=== PATIENT | male | born 1965 | race Caucasian/White ===

== ENCOUNTER 2024-09-02 03:45 | Inpatient (IN) ==
[2024-09-02] MEDS: SODIUM CHLORIDE 0.9% 1,000 ML IV SCH (04:34)
[2024-09-02 04:43] LABS: Basophils # (auto) 0.07 K/uL (0.00-0.20); Basophils % (auto) 0.4 %; Eosinophils # (auto) 0.03 K/uL (0.00-0.50); Eosinophils % (auto) 0.2 %; Hematocrit (blood only) 38.3 % (42.0-52.0); Hemoglobin 12.9 g/dl (14.0-18.0); Immature Granulocytes # (auto) 0.13 K/uL (0.01-0.20); Immature Granulocytes % (auto) 0.7 %; Lymphocytes # (auto) 2.01 K/uL (1.20-3.40); Lymphocytes % (auto) 10.1 %; Mean Corpuscular Hemoglobin 27.7 pg (25.0-34.0); Mean Corpuscular Hgb Conc 33.7 g/dL (32.0-36.0); Mean Corpuscular Volume 82.4 fL (80.0-100.0); Mean Platelet Volume 10.5 fL (9.4-12.4); Monocytes # (auto) 1.89 K/uL (0.11-0.59); Monocytes % (auto) 9.5 %; Neutrophils # (auto) 15.77 K/uL (1.40-6.50); Neutrophils % (auto) 79.1 %; Platelet Count 229 K/uL (130-400); RDW Coefficient of Variation 14.6 % (11.5-14.5); RDW Standard Deviation 44.2 fL (36.4-46.3); Red Blood Count 4.65 M/uL (4.70-6.10)
[2024-09-02 04:47] LABS: Alanine Aminotransferase 13 U/L (7-52); Albumin Level 3.2 gm/dl (3.4-5.0); Alkaline Phosphatase 100 U/L (34-104); Anion Gap 11 (3-11); Aspartate Aminotransferase 21 U/L (13-39); BUN Creatinine Ratio 19.7 (10-20); Bilirubin Direct 0.2 mg/dl (0-0.2); Bilirubin,Total 0.7 mg/dl (0.2-1.0); Blood Urea Nitrogen 44 mg/dl (6-23); Calcium 8.8 mg/dl (8.6-10.3); Carbon Dioxide 15 mmol/L (21-32); Chloride 103 mmol/L (98-107); Glucose 212 mg/dl (70-99(Fasting)); Magnesium 1.3 mg/dl (1.7-2.4); Potassium 4.7 mmol/L (3.5-5.1); Sodium 129 mmol/L (136-145); Total Protein 7.1 gm/dl (6.0-8.3)
[2024-09-02 04:53] LABS: Troponin I High Sensitivity 23.7 pg/ml (0-20)
[2024-09-02] MEDS ORDERED: VANCOMYCIN CONSULT ACTIVE PRN (04:54)
[2024-09-02] MEDS: SODIUM CHLORIDE 0.9% 1,000 ML IV ONE ×2 (04:58→06:24)
--- NOTE | 2024-09-02 05:29 | Emergency Department Note ---
Impression & Plan Sepsis, NOE (acute kidney injury), Elevated troponin, Status post below-knee amputation, Norovirus ED Provider Note ED Provider Note NAME: BARBER AGUILERA AGE:59 SEX: Male : 1965 ARRIVES VIA: EMS INFORMANT: Patient ED PROVIDER(s): Sandra Polanco DO CHIEF COMPLAINT: Positive outpatient blood cultures HPI: This is a 59-year-old male sent in by EMS from a local rehab facility after the finding of positive outpatient blood culture. Patient reports he has had intermittent fevers over the last 2 days and has generally had increasing weakness over the last 2 weeks after initially feeling as though he was recovering and rehabbing well following a right below the knee amputation in mid June. Patient states he had blood work done and cultures 2 days ago. Staff there reported to EMS that they received a phone call that the blood cultures were positive and due to recent surgery and prior osteomyelitis they were concerned for worsening infection. Patient is still currently taking antibiotics and he feels that is what is contributed to his recent diarrhea. He denies any abdominal pain, chest pain, cough, nausea or vomiting, difficulty breathing, or change in urine. He denies noting any black or bloody stools. PAST MEDICAL HISTORY:See Below PAST SURGICAL HISTORY:See Below FAMILY HISTORY:See Below SOCIAL HISTORY:See Below HOME MEDICATIONS:See Below ALLERGIES:See Below VITALS:See Below PHYSICAL EXAMINATION: GENERAL: alert, well appearing, well nourished, no distress, non-toxic EYE EXAM: normal conjunctiva, PERRL and EOM's grossly intact OROPHARYNX: no exudate, no erythema, lips, buccal mucosa, and tongue normal and mucous membranes are dry NECK: supple, no nuchal rigidity, no adenopathy, non-tender LUNGS: Clear to auscultation. Normal chest wall mechanics, no w/r/r HEART: no murmurs, S1 normal and S2 normal ABDOMEN: abdomen soft, non-tender, normo-active bowel sounds, no masses, no rebound or guarding. SKIN: no rashes, petechiae, orbruising UPPER EXTREMITIES: upper extremities are grossly normal. FROM, nml pulses b/l. LOWER EXTREMITIES: No pitting edema. FROM LLE, nml pulses b/l. Right BKA with healing stump, small scab/eschar region noted medially along the incision, no surrounding erythema, no crepitus, no active discharge, drainage, or bleeding, small wound noted anteriorly covered with a dressing NEURO EXAM: Normal sensorium, cranial nerves II-XII grossly intact, normal speech, no facial droop,nogross weakness of arms, no gross weakness of legs. Gross sensation intact. No ataxia. Vital Signs: reviewed and remarkable Differential Diagnosis: viral syndrome, otitis, pharyngitis, pneumonia, influenza, meningitis, urinary tract infection, sepsis, bacteremia, as well as others were entertained. MEDICAL DECISION MAKING: This is a 59 yo male sent in from a facility due to abnormal blood cultures. Patient is already on antibiotics. He presented on a day of high volume and acuity. Labs drawn and sent, IV established, EKG and CXR performed and interpreted at bedside, and patient placed on telemetry. Patient admitted to diarrhea and increased weakness and fevers in the last 2 days. Cultures, lactic acid, procalcitonin obtained additionally. After review or current antibiotics and outpatient labs from 2 days ago, patient given broad spectrum antibiotics. His blood pressure was soft but he was maintaining his MAP. Due to likely GI losses in addition to possible sepsis, he was given IVF. He received a total of >30 ml/kg. Given concern for recent BKA, patient sent for CT RLE to evaluate the stump. No obvious pna on cxr. Patient noted to have elevated WBC, elevated lactate, elevated procal, and NOE. Patient updated at bedside. Case discussed with hospitalist for additional evaluation and mgmt. Patient did eventually produce stool in the ER which was sent for C.diff and culture and patient found to have norovirus. I suspect this is likely the cause of his recent diarrhea. He denied abdominal pain or distention. Consultation(s): 0530: Discussed with Dr. Carl, [facility] hospitalist team, for additional evaluation and management. ER Treatment Provided: See below 0511: Reassessment of volume status performed at bedside. Patient's BP still soft however holding his MAP. He denies any new or evolving symptoms. Diagnostics Interpreted By Me: -ECG: Sinus tachycardia 122, leftward axis, normal intervals, nonspecific ST/T wave changes, PVC noted -Cardiac Monitoring: An order was placed for continuous cardiac monitoring. The monitor shows a rate of 88 with normal sinus rhythm. -Laboratory studies: As stated above and show below. -Imaging studies: X-ray Chest: A single view study of the chest was reviewed and was negative for cardiomegaly, focal infiltrate, effusion, pulmonary edema, or wide mediastinum. Triage Nursing Note Reviewed Prior/Outside Records Reviewed Critical Care: Critical care of 46 min performed to assess and manage high likelihood of life-threatening sepsis, involving labs and imaging performed with assessment to evaluate XX diagnosis] with frequent reassessment. This time includes bedside time, treatment discussions with patient/family/consultants, documentation time and excludes procedure time. Past Med/Surg History Problem List (Updated 09/04/24 @ 03:17 by Sandra Polanco DO) Norovirus (Acute) Severe sepsis Status post below-knee amputation (Acute) Elevated troponin (Acute) NOE (acute kidney injury) (Acute) Sepsis (Acute) Medical History Hypertension Social History Smoking Status: Never smoker Hx Alcohol Use: No Hx Substance Use: No Preferred Language: Bahamian Communication Ability: Effective Risk Management Consultant Required: No Beliefs That Will Affect Care: None Current Living Situation: Rehab Other Information That Helps Us Care for You: No Feels Safe at Home: Yes Safety Concerns: Feels Safe At This Time Assistive Devices: Cane and Walker Allergies Allergies Allergy/AdvReac Type Severity Reaction Status Date / Time No Known Allergies Allergy Verified 09/02/24 06:20 Home Meds Home Medications Medication Instructions Recorded Confirmed Saccharomyces boulardii 250 mg 250 mg PO BID 09/02/24 09/02/24 capsule (Probiotic (S.boulardii)) apixaban 5 mg tablet 5 mg PO BID 09/02/24 09/02/24 atorvastatin 40 mg tablet (Lipitor) 40 mg PO DAILY 09/02/24 09/02/24 clopidogrel 75 mg tablet (Plavix) 75 mg PO DAILY 09/02/24 09/02/24 dapagliflozin propanediol 10 mg 10 mg PO DAILY 09/02/24 09/02/24 tablet (Farxiga) dulaglutide 3 mg/0.5 mL 3 mg subcut Q7D 09/02/24 09/02/24 subcutaneous pen injector ([facility]) escitalopram oxalate 20 mg tablet 20 mg PO DAILY 09/02/24 09/02/24 gabapentin 300 mg capsule 300 mg PO TID 09/02/24 09/02/24 ipratropium 0.5 mg-albuterol 3 mg 3 ml inhalation Q4H PRN Wheezing 09/02/24 09/02/24 (2.5 mg base)/3 mL nebulization soln metoprolol succinate 50 mg 50 mg PO DAILY 09/02/24 09/02/24 tablet,extended release 24 hr (Toprol XL) pantoprazole 40 mg tablet,delayed 40 mg PO DAILY 09/02/24 09/02/24 release potassium chloride 20 mEq 20 meq PO DAILY 09/02/24 09/02/24 tablet,extended release sacubitril 97 mg-valsartan 103 mg 1 tab PO BID 09/02/24 09/02/24 tablet (Entresto) tramadol 50 mg tablet 50 mg PO Q6H PRN Pain (Scale Score 09/02/24 09/02/24 4-6) Results & Data (ED) Vital Signs Vital Signs - 24 hr 09/02/24 03:50 09/02/24 04:16 09/02/24 04:30 Temperature 36.5 C Temperature Source Oral Pulse Rate 120 H 89 87 Pulse Rate [Apical] Pulse Rate from SpO2 Sensor 87 Pulse Rhythm Regular Pulse Rhythm [Apical] Pulse Strength [Apical] Respiratory Rate 25 H 20 Respiratory Effort / Characteristics Non-Labored Respiratory Depth Normal Respiratory Pattern Blood Pressure 90/69 L 91/63 L Blood Pressure [Right Arm] Blood Pressure Mean 76 69 Blood Pressure Mean [Right Arm] Pulse Oximetry 98 97 Oxygen Delivery Method Room Air Room Air Sepsis Recent Fever Within 48 Hours Yes Sepsis New/Unexplained Change in Mental Status N/A Sepsis Action Taken by Nursing Previously Notified 09/02/24 05:01 09/02/24 06:21 09/02/24 07:12 Temperature Temperature Source Pulse Rate 81 93 H Pulse Rate [Apical] Pulse Rate from SpO2 Sensor 81 83 Pulse Rhythm Pulse Rhythm [Apical] Pulse Strength [Apical] Respiratory Rate 16 18 Respiratory Effort / Characteristics Respiratory Depth Respiratory Pattern Blood Pressure 94/66 L 89/54 L Blood Pressure [Right Arm] Blood Pressure Mean 79 70 Blood Pressure Mean [Right Arm] Pulse Oximetry 97 97 97 Oxygen Delivery Method Room Air Room Air Room Air Sepsis Recent Fever Within 48 Hours Sepsis New/Unexplained Change in Mental Status Sepsis Action Taken by Nursing 09/02/24 07:13 09/02/24 07:14 Temperature 36.8 C Temperature Source Oral Pulse Rate 90 Pulse Rate [Apical] 90 Pulse Rate from SpO2 Sensor Pulse Rhythm Regular Pulse Rhythm [Apical] Regular Pulse Strength [Apical] Normal Respiratory Rate 19 18 Respiratory Effort / Characteristics Non-Labored Spontaneous Respiratory Depth Normal Respiratory Pattern Regular Blood Pressure Blood Pressure [Right Arm] 102/66 Blood Pressure Mean Blood Pressure Mean [Right Arm] 78 Pulse Oximetry 98 98 Oxygen Delivery Method Room Air Room Air Sepsis Recent Fever Within 48 Hours Sepsis New/Unexplained Change in Mental Status Sepsis Action Taken by Nursing Laboratory Data 09/03/24 07:17 09/03/24 07:17 Lab Results 09/02/24 Range/Units 04:00 WBC 19.90 H (4.8-10.8) K/ul RBC 4.65 L (4.70-6.10) M/uL Hgb 12.9 L (14.0-18.0) g/dl Hct 38.3 L (42.0-52.0) % MCV 82.4 (80.0-100.0) fL MCH 27.7 (25.0-34.0) pg MCHC 33.7 (32.0-36.0) g/dL RDW Std Deviation 44.2 (36.4-46.3) fL RDW Coeff of Ellen 14.6 H (11.5-14.5) % Plt Count 229 (130-400) K/uL MPV 10.5 (9.4-12.4) fL Immature Gran % (Auto) 0.7 % Neut % (Auto) 79.1 % Lymph % (Auto) 10.1 % [place] % (Auto) 9.5 % Eos % (Auto) 0.2 % Baso % (Auto) 0.4 % Neut # (Auto) 15.77 H (1.40-6.50) K/uL Lymph # (Auto) 2.01 (1.20-3.40) K/uL [place] # (Auto) 1.89 H (0.11-0.59) K/uL Eos # (Auto) 0.03 (0.00-0.50) K/uL Baso # (Auto) 0.07 (0.00-0.20) K/uL Immature Gran # (Auto) 0.13 (0.01-0.20) K/uL Sodium 129 L (136-145) mmol/L Potassium 4.7 (3.5-5.1) mmol/L Chloride 103 (98-107) mmol/L Carbon Dioxide 15 L (21-32) mmol/L Anion Gap 11 (3-11) BUN 44 H (6-23) mg/dl Creatinine 2.23 H (0.6-1.4) mg/dl Est Cr Clr Drug Dosing Not Reportable eGFR 33.12 BUN/Creatinine Ratio 19.7 (10-20) Glucose 212 H (70-99(Fasting)) mg/dl Estimat Average Glucose 114 mg/dl Hemoglobin A1c 5.6 (4.5-5.6) % Osmolality 294 (280-300) mOsm/kg Lactate 2.2 H* (0.4-2.0) mmol/L Calcium 8.8 (8.6-10.3) mg/dl Magnesium 1.3 L (1.7-2.4) mg/dl Total Bilirubin 0.7 (0.2-1.0) mg/dl Direct Bilirubin 0.2 (0-0.2) mg/dl AST 21 (13-39) U/L ALT 13 (7-52) U/L Alkaline Phosphatase 100 (34-104) U/L Troponin I High Sens 23.7 H (0-20) pg/ml Total Protein 7.1 (6.0-8.3) gm/dl Albumin 3.2 L (3.4-5.0) gm/dl Procalcitonin 2.51 H (0-0.5) ng/ml Staphylococcus sp PCR DETECTED A (NotDetected) Staph aureus (PCR) DETECTED A (NotDetected) mecA/C & MREJ Resist Gene MRSA DETECTED A* (NotDetected) Bld Cult ID Panel PCR See PCR Comment (NotDetected) Administered Medications Atorvastatin Calcium (Atorvastatin 40 Mg Tab) 40 mg PO DAILY [facility] Stop: 10/03/24 08:59 Last Admin: 09/03/24 08:09 Dose: 40 mg Documented By: WILLIAM Escitalopram Oxalate (Escitalopram Oxalate 20 Mg Tab) 20 mg PO DAILY [facility] Stop: 10/03/24 08:59 Last Admin: 09/03/24 08:10 Dose: 20 mg Documented By: WILLIAM Gabapentin (Gabapentin 100 Mg Cap) 200 mg PO TID [facility] Stop: 10/02/24 13:59 Last Admin: 09/03/24 20:57 Dose: 200 mg Documented By: Admin: 09/03/24 15:19 Dose: 200 mg Documented By: Admin: 09/03/24 08:09 Dose: 200 mg Documented By: Admin: 09/02/24 21:58 Dose: 200 mg Documented By: Admin: 09/02/24 14:59 Dose: 200 mg Documented By: PARVEEN Piperacillin Sod/Tazobactam Sod (Zosyn) 4.5 gm in 100 mls @ 25 mls/hr IV Q8H [facility]; Protocol Stop: 10/14/24 15:59 Last Admin: 09/03/24 23:59 Dose: 25 mls/hr Documented By: Infusion: 09/03/24 19:36 Dose: Infused Documented By: Admin: 09/03/24 15:20 Dose: 25 mls/hr Documented By: Infusion: 09/03/24 12:02 Dose: Infused Documented By: Admin: 09/03/24 08:02 Dose: 25 mls/hr Documented By: Infusion: 09/03/24 05:00 Dose: Infused Documented By: Admin: 09/03/24 00:44 Dose: 25 mls/hr Documented By: Infusion: 09/02/24 19:09 Dose: Infused Documented By: Admin: 09/02/24 15:00 Dose: 25 mls/hr Documented By: PARVEEN Daptomycin 700 mg/ Syringe 14 mls @ 7 mls/min IV Q24H [facility]; Protocol Stop: 09/16/24 11:59 Last Admin: 09/03/24 11:44 Dose: 7 mls/min Documented By: Admin: 09/02/24 14:59 Dose: 7 mls/min Documented By: PARVEEN Sodium Chloride (Nss) 1,000 mls @ 80 mls/hr IV .[id number] [facility] Stop: 09/04/24 09:14 Last Admin: 09/03/24 19:36 Dose: 80 mls/hr Documented By: Infusion: 09/03/24 19:36 Dose: Infused Documented By: Infusion: 09/03/24 14:30 Dose: 80 mls/hr Documented By: Infusion: 09/03/24 12:30 Dose: 0 mls/hr Documented By: Admin: 09/03/24 09:00 Dose: 80 mls/hr Documented By: WILLIAM Insulin Aspart (Insulin Aspart Per Unit Charge) 0 units SC ACHS [facility] Stop: 10/02/24 10:27 Last Admin: 09/03/24 20:58 Dose: Not Given Documented By: Admin: 09/03/24 16:59 Dose: 4 units Documented By: WILLIAM Co-signed By: NILES Admin: 09/03/24 11:44 Dose: 5 units Documented By: WILLIAM Co-signed By: NILES Admin: 09/03/24 08:02 Dose: 5 units Documented By: WILLIAM Co-signed By: BRIAN Admin: 09/02/24 21:58 Dose: Not Given Documented By: Admin: 09/02/24 17:44 Dose: 4 units Documented By: PARVEEN Co-signed By: NILES Admin: 09/02/24 12:15 Dose: Not Given Documented By: Admin: 09/02/24 12:14 Dose: 6 units Documented By: TOMER Co-signed By: NILES Oxycodone HCl (Oxycodone Hcl Ir 5 Mg Tab (Immediate Release)) 5 - 10 mg PO QID PRN PRN Reason: Pain Stop: 09/16/24 05:58 Last Admin: 09/04/24 01:37 Dose: 10 mg Documented By: Admin: 09/03/24 08:01 Dose: 10 mg Documented By: Admin: 09/02/24 15:22 Dose: 5 mg Documented By: PARVEEN Pantoprazole Sodium (Pantoprazole 40 Mg Tab) 40 mg PO DAILY [facility] Stop: 10/03/24 08:59 Last Admin: 09/03/24 08:10 Dose: 40 mg Documented By: WILLIAM Saccharomyces Boulardii (Saccharomyces Boulardii 250 Mg Cap) 250 mg PO BID [facility] Stop: 10/02/24 20:59 Last Admin: 09/03/24 20:57 Dose: 250 mg Documented By: Admin: 09/03/24 08:10 Dose: 250 mg Documented By: Admin: 09/02/24 21:58 Dose: 250 mg Documented By: KWABENA Discontinued Medications Escitalopram Oxalate (Escitalopram Oxalate 20 Mg Tab) 20 mg PO NOW STA Stop: 09/02/24 09:26 Last Admin: 09/02/24 09:42 Dose: 20 mg Documented By: JORDI Gadobutrol (Gadobutrol 65ml Vial) 10 ml IV ONCE ONE Stop: 09/03/24 13:49 Last Admin: 09/03/24 13:49 Dose: 10 ml Documented By: KWADWO Sodium Chloride (Nss) 1,000 mls @ 999 mls/hr IV .Q1H1M [facility] Stop: 09/02/24 05:30 Last Infusion: 09/02/24 05:35 Dose: Infused Documented By: Admin: 09/02/24 04:34 Dose: 999 mls/hr Documented By: PRASHANT Cefepime HCl (Maxipime 2000mg) 2,000 mg in 20 mls @ 5 mls/min IV NOW STA; Protocol Stop: 09/02/24 04:57 Last Admin: 09/02/24 05:45 Dose: 5 mls/min Documented By: NIMCO Vancomycin HCl 2,750 mg/ (Sodium Chloride) 555 mls @ 200 mls/hr IV NOW ONE Stop: 09/02/24 07:40 Last Infusion: 09/02/24 09:37 Dose: Infused Documented By: Admin: 09/02/24 06:24 Dose: 200 mls/hr Documented By: NIMCO Sodium Chloride (Nss) 1,000 mls @ 999 mls/hr IV .Q1H1M ONE Stop: 09/02/24 05:54 Last Infusion: 09/02/24 06:44 Dose: Infused Documented By: Admin: 09/02/24 05:45 Dose: 999 mls/hr Documented By: Infusion: 09/02/24 05:45 Dose: Infused Documented By: Admin: 09/02/24 04:58 Dose: 999 mls/hr Documented By: NIMCO Magnesium Sulfate/Dextrose (Magnesium Sulfate / D5w) 1 gm in 100 mls @ 100 mls/hr IV Q1H [facility] Stop: 09/02/24 07:00 Last Infusion: 09/02/24 09:37 Dose: Infused Documented By: Admin: 09/02/24 06:52 Dose: 100 mls/hr Documented By: Infusion: 09/02/24 06:51 Dose: Infused Documented By: Admin: 09/02/24 05:48 Dose: 100 mls/hr Documented By: NIMCO Sodium Chloride (Nss) 1,000 mls @ 999 mls/hr IV .Q1H1M ONE Stop: 09/02/24 06:37 Last Infusion: 09/02/24 08:17 Dose: Infused Documented By: Admin: 09/02/24 06:24 Dose: 999 mls/hr Documented By: NIMCO Metronidazole (Flagyl) 500 mg in 100 mls @ 100 mls/hr IV NOW STA; Protocol Stop: 09/02/24 06:49 Last Infusion: 09/02/24 09:37 Dose: Infused Documented By: Admin: 09/02/24 08:20 Dose: 100 mls/hr Documented By: JORDI Piperacillin Sod/Tazobactam Sod (Zosyn) 4.5 gm in 100 mls @ 200 mls/hr IV NOW STA; Protocol Stop: 09/02/24 10:10 Last Infusion: 09/02/24 11:28 Dose: Infused Documented By: Admin: 09/02/24 10:14 Dose: 200 mls/hr Documented By: JORDI Sodium Chloride (Nss) 500 mls @ 999 mls/hr IV .Q31M ONE Stop: 09/03/24 17:41 Last Infusion: 09/03/24 17:45 Dose: Infused Documented By: Admin: 09/03/24 17:14 Dose: 999 mls/hr Documented By: WILLIAM Miscellaneous (Patient's Height &/Or Weight Needed) 1 each N/A NOW STA Stop: 09/02/24 03:01 Last Admin: 09/02/24 07:27 Dose: Not Given Documented By: JORDI Miscellaneous Information (Patient's Allergy Info Needs Entered) 1 each N/A NOW STA Stop: 09/02/24 03:01 Last Admin: 09/02/24 06:43 Dose: Not Given Documented By: NIMCO Pantoprazole Sodium (Pantoprazole 40 Mg Tab) 40 mg PO NOW STA Stop: 09/02/24 09:24 Last Admin: 09/02/24 09:42 Dose: 40 mg Documented By: JORDI Imaging Data Radiologist's Impression: Chest X-Ray 09/02/24 04:21 EXAM: XR chest 1V portable CLINICAL HISTORY: Sepsis. TECHNIQUE: An X-ray image of the chest is obtained in AP projection. COMPARISON: No prior studies are available for comparison. FINDINGS: Pulmonary Parenchyma: Prominent hilar bronchopulmonary vasculature (more on the right side with mild basal reticulations). Lungs are clear bilaterally. No evidence of consolidation, collapse, or focal opacities. No pulmonary nodules are identified. No evidence of pleural effusion or pleural thickening. Heart and Mediastinum: Heart size and shape are normal. No mediastinal widening or masses. No hilar or mediastinal lymphadenopathy. Bony Thorax: Bony thorax appears intact without fractures or deformities. Soft Tissues: Soft tissues overlying the chest wall are unremarkable. IMPRESSION: 1. Prominent hilar bronchopulmonary vasculature (more on the right side with mild basal reticulations). 2. No acute cardiopulmonary abnormalities are identified. Electronically signed by Oj Lara 09-02-2024 05:[address] 09/02/24 05:05 EXAM: CT knee RT wo con CLINICAL HISTORY: BKA, ?infection at the stump. TECHNIQUE: Thin axial images non-contrast of the right knee joint were obtained along with coronal and sagittal reconstructions. One of the following dose reduction techniques was utilized for this exam: Automated exposure control, adjustment of the mA and/or kV according to patient size, and use of iterative reconstruction. CTDI: 25mGY, DLP: 856mGy*cm. COMPARISON: None. FINDINGS: Bones: Below-knee amputation is seen at the level of the mid-shaft of the tibia. Normal alignment of the femur, tibia, fibula, and patella. No fractures or dislocations. Site of previous screws noted at tibial shaft. Joint Space: Osteoarthritic changes of the right knee joint Fabella is noted within the posterior aspect of the knee joint. Ligaments: Intact and normal appearance of the anterior cruciate ligament (ACL), posterior cruciate ligament (PCL), medial collateral ligament (MCL), and calcification of femoral attachment of lateral collateral ligament (LCL). No ligamentous injury or abnormalities. Tendons: Normal appearance of the patellar tendon, quadriceps tendon, and other tendons around the knee. Soft Tissues: Diffuse fatty infiltration of the visualized thigh and leg muscles. There is a dense soft tissue mass surrounding the popliteal artery at the popliteal fossa, measured 5x5.5 cm, which could represent a hematoma, which needs further evaluation. Extensive calcifications of the popliteal artery and its visualized branches at the upper leg. stump skin thickening and soft tissue edema at anteromedial aspect, need clinical correlation and further evaluations IMPRESSION: 1. Below knee amputation seen at level of mid shaft of tibia, with overlying skin thickening and soft tissue edema at anteriomedial aspect, could be inflammatory/infectious, need clinical correlation and further evaluations. MR is recommended. 2. Extensive calcifications of the distal SFA, popliteal artery, and its visualized branches at the upper leg. 3. There is a dense soft tissue mass surrounding the distal superficial femoral artery proximal to the popliteal fossa, measured 5 x 5.5 cm, could represent a hematoma, which needs further evaluation. 4. Diffuse fatty infiltration of the visualized thigh and leg muscles. 5. Osteoarthritic changes of the right knee joint. 6. calcification of femoral attachment of lateral collateral ligament (LCL). Electronically signed by Oj Lara 09-02-2024 07:07 AM Discharge Plan Visit Data Chief Complaint: Illness Stated Complaint: Fever, tachycardic, hypotensive ED Provider: Sandra Polanco Discharge Problem: Sepsis, NOE (acute kidney injury), Elevated troponin, Status post below-knee amputation, Norovirus Patient Disposition: Admitted As Inpatient Discharge Instructions Interventions: ED Discharge Assessment Last Done: 09/02/24 10:49
[2024-09-02] MEDS: CEFEPIME 2000MG 2,000 MG/20 ML SYR IV STA (05:45)
[2024-09-02] MEDS: MAGNESIUM SULFATE / D5W 1 GM/100 ML BAG IV SCH (05:48)
[2024-09-02] MEDS ORDERED: ACETAMINOPHEN 325 MG TAB PO PRN (05:59)
[2024-09-02] MEDS ORDERED: PROMETHAZINE 12.5 MG/50.5 ML BAG IV PRN (05:59)
[2024-09-02] MEDS: VANCOMYCIN HCL 2,750 MG in SODIUM CHLORIDE 0.9% 500 ML IV ONE (06:24)
--- NOTE | 2024-09-02 06:42 | History & Physical Report ---
Date of Service September 02, 2024 Assessment & Plan (1) Severe sepsis: Plan: SIRS plus ARF plus lactic acidosis Potential sources: Gram-positive bacteremia on outpatient blood work (MRSA gene positive) rule out endocarditis Recurrent RLE osteomyelitis, hx BKA for chronic right ankle osteomyelitis sp antibiotic Rx (06/2024, [facility]) Diarrhea rule out C. difficile Hyponatremia, hypotension secondary to illness chronic diastolic heart failure (EF 50%, TTE 2023, patient on the dry side hx CAD A-fib status post ablation on Eliquis hyperlipidemia, on statin Rx hx PUD as per records pancreatic lesion as per records, incidental finding on abdominal imaging last June 2024 as per records DM2 on oral medications, hemoglobin A1c of 5.7 from last year. Chronic anemia, hemoglobin at baseline past tobacco abuse PCU given hypotension Follow final outpatient blood CS report drawn by [facility] at [facility] CS, Daptomycin and Zosyn for now Follow CT RLE Hold antiplatelet Rx and NOAC Rx until CT resulted May need Orthopedics evaluation TTE re: Gram-positive bacteremia Stool C. difficile ID consult contingent on above workup results. Monitor creatinine and lactic acid response to IVF Appropriate to hold multiple BP medications for now given hypotension ISS BG goal 1 10-1 40, update hemoglobin A1c DVT prophylaxis. SCDs while Eliquis on hold Full code Total critical care time was 40 minutes. Text document was generated using [employer] voice recognition software. It may contain grammatical or spelling errors. Kindly contact undersigned for clarification of any documentation item in question. History of Present Illness Chief Complaint: Abnormal blood cultures, fever chills Primary Care Provider: Dr. Frye History obtained from patient and records. Medical history significant for chronic diastolic heart failure (EF 50%, TTE 2023, CAD, A-fib status post ablation on Eliquis, hypertension, hyperlipidemia, PUD as per records, pancreatic lesion as per records, DM2 on oral medications, chronic anemia (baseline hemoglobin 12-13), chronic right ankle osteomyelitis status post BKA status post antibiotic Rx, morbid obesity, mood disorder, past tobacco abuse. Patient admitted at [facility] facility October 2023 for right ankle fracture dislocation status post surgery. Multiple revision surgeries and debridements and antibiotic courses for gram- negative bacteremia for RLE osteomyelitis. Recent confinement [facility] for septic right ankle joint status post right BKA last June [address] Velez. Capnocytophagia bacteremia on blood cultures. Patient completed daptomycin and Zosyn course following ID recommendations. Patient unable to go home and live independently after confinement. Subsequent rehab and placement at [facility]. 2 days ago, patient noted fever, chills and diarrhea symptoms. Right BKA stump aching more than usual. Denies chest pain, cough or abdominal pain. Outpatient provider requested for blood cultures, chemistries. Serum creatinine 1.8 from normal baseline. Outpatient COVID-19, RSV, and flu swabs negative. Abnormal blood cultures later resulted. Anaerobic bottle gram-positive cocci in clusters. Aerobic bottle gram-positive cocci in clusters. Staphylococcus aureus DNA positive, MecA and MREJ (methicillin resistance genes) positive Patient directed to ER for evaluation. Lowest SBP of 80s documented at the ER. Vancomycin and cefepime administered at the ER. 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 Allergies Allergy/AdvReac Type Severity Reaction Status Date / Time No Known Allergies Allergy Verified 09/02/24 06:20 Home Medications Medication Instructions Recorded Confirmed Type Saccharomyces boulardii 250 mg 250 mg PO BID 09/02/24 09/02/24 History capsule (Probiotic (S.boulardii)) apixaban 5 mg tablet 5 mg PO BID 09/02/24 09/02/24 History atorvastatin 40 mg tablet (Lipitor) 40 mg PO DAILY 09/02/24 09/02/24 History clopidogrel 75 mg tablet (Plavix) 75 mg PO DAILY 09/02/24 09/02/24 History dapagliflozin propanediol 10 mg 10 mg PO DAILY 09/02/24 09/02/24 History tablet (Farxiga) dulaglutide 3 mg/0.5 mL 3 mg subcut Q7D 09/02/24 09/02/24 History subcutaneous pen injector (Trulicity) escitalopram oxalate 20 mg tablet 20 mg PO DAILY 09/02/24 09/02/24 History gabapentin 300 mg capsule 300 mg PO TID 09/02/24 09/02/24 History ipratropium 0.5 mg-albuterol 3 mg 3 ml inhalation Q4H PRN Wheezing 09/02/24 09/02/24 History (2.5 mg base)/3 mL nebulization soln metoprolol succinate 50 mg 50 mg PO DAILY 09/02/24 09/02/24 History tablet,extended release 24 hr (Toprol XL) pantoprazole 40 mg tablet,delayed 40 mg PO DAILY 09/02/24 09/02/24 History release potassium chloride 20 mEq 20 meq PO DAILY 09/02/24 09/02/24 History tablet,extended release sacubitril 97 mg-valsartan 103 mg 1 tab PO BID 09/02/24 09/02/24 History tablet (Entresto) tramadol 50 mg tablet 50 mg PO Q6H PRN Pain (Scale Score 09/02/24 09/02/24 History 4-6) Past Med/Surg History Problem List (Updated 09/02/24 @ 09:24 by Alin Benavidez MD) Severe sepsis Status post below-knee amputation (Acute) Elevated troponin (Acute) NOE (acute kidney injury) (Acute) Sepsis (Acute) Medical History Hypertension Social History Smoking Status: Never smoker Feels Safe at Home: Yes Review of Systems Review of Systems: As per HPI, all other systems reviewed and negative Physical Exam Physical Exam: GENERAL: Comfortable, pleasant, morbidly obese, no respiratory distress SKIN: Normal color, warm HEENT: Partial alopecia, [place] palpebral conjunctivae, no ptosis, dry buccal mucosa NECK : Supple, short neck, no tenderness CHEST : Decreased breath sounds, no tenderness HEART : RRR, no murmurs ABDOMEN: Some distention, nontender EXTREMITIES : Tender induration RLE stump, palpable pulses, no other conspicuous deformities noted NEUROLOGIC : Coherent, no facial asymmetry, no other gross focality Results & Data Results & Data Vital Signs (Past 12 Hours) Vital Signs Temp Pulse Resp BP Pulse Ox O2 Del Method 09/02/24 06:21 93 H 18 89/54 L 97 Room Air 09/02/24 05:01 81 16 94/66 L 97 Room Air 09/02/24 04:30 87 20 91/63 L 97 Room Air 09/02/24 04:16 89 09/02/24 03:50 36.5 C 120 H 25 H 90/69 L 98 Room Air Laboratory Results Laboratory Results WBC 19.90 K/ul (4.8-10.8) H 09/02/24 04:00 RBC 4.65 M/uL (4.70-6.10) L 09/02/24 04:00 Hgb 12.9 g/dl (14.0-18.0) L 09/02/24 04:00 Hct 38.3 % (42.0-52.0) L 09/02/24 04:00 MCV 82.4 fL (80.0-100.0) 09/02/24 04:00 MCH 27.7 pg (25.0-34.0) 09/02/24 04:00 MCHC 33.7 g/dL (32.0-36.0) 09/02/24 04:00 RDW Std Deviation 44.2 fL (36.4-46.3) 09/02/24 04:00 RDW Coeff of Ellen 14.6 % (11.5-14.5) H 09/02/24 04:00 Plt Count 229 K/uL (130-400) 09/02/24 04:00 MPV 10.5 fL (9.4-12.4) 09/02/24 04:00 Immature Gran % (Auto) 0.7 % 09/02/24 04:00 Neut % (Auto) 79.1 % 09/02/24 04:00 Lymph % (Auto) 10.1 % 09/02/24 04:00 Sherman % (Auto) 9.5 % 09/02/24 04:00 Eos % (Auto) 0.2 % 09/02/24 04:00 Baso % (Auto) 0.4 % 09/02/24 04:00 Neut # (Auto) 15.77 K/uL (1.40-6.50) H 09/02/24 04:00 Lymph # (Auto) 2.01 K/uL (1.20-3.40) 09/02/24 04:00 Sherman # (Auto) 1.89 K/uL (0.11-0.59) H 09/02/24 04:00 Eos # (Auto) 0.03 K/uL (0.00-0.50) 09/02/24 04:00 Baso # (Auto) 0.07 K/uL (0.00-0.20) 09/02/24 04:00 Immature Gran # (Auto) 0.13 K/uL (0.01-0.20) 09/02/24 04:00 Sodium 131 mmol/L (136-145) L 09/02/24 06:08 Potassium 4.7 mmol/L (3.5-5.1) 09/02/24 04:00 Chloride 103 mmol/L (98-107) 09/02/24 04:00 Carbon Dioxide 15 mmol/L (21-32) L 09/02/24 04:00 Anion Gap 11 (3-11) 09/02/24 04:00 BUN 44 mg/dl (6-23) H 09/02/24 04:00 Creatinine 2.23 mg/dl (0.6-1.4) H 09/02/24 04:00 Est Cr Clr Drug Dosing Not Reportable 09/02/24 04:00 eGFR 33.12 09/02/24 04:00 BUN/Creatinine Ratio 19.7 (10-20) 09/02/24 04:00 Glucose 212 mg/dl (70-99(Fasting)) H 09/02/24 04:00 Osmolality 294 mOsm/kg (280-300) 09/02/24 04:00 Lactate 2.0 mmol/L (0.4-2.0) 09/02/24 06:08 Calcium 8.8 mg/dl (8.6-10.3) 09/02/24 04:00 Magnesium 1.3 mg/dl (1.7-2.4) L 09/02/24 04:00 Total Bilirubin 0.7 mg/dl (0.2-1.0) 09/02/24 04:00 Direct Bilirubin 0.2 mg/dl (0-0.2) 09/02/24 04:00 AST 21 U/L (13-39) 09/02/24 04:00 ALT 13 U/L (7-52) 09/02/24 04:00 Alkaline Phosphatase 100 U/L (34-104) 09/02/24 04:00 Total Creatine Kinase 16 U/L (30-223) L 09/02/24 06:08 Troponin I High Sens 23.7 pg/ml (0-20) H 09/02/24 04:00 Total Protein 7.1 gm/dl (6.0-8.3) 09/02/24 04:00 Albumin 3.2 gm/dl (3.4-5.0) L 09/02/24 04:00 Procalcitonin 2.51 ng/ml (0-0.5) H 09/02/24 04:00 Impressions Chest X-Ray 09/02/24 04:21 EXAM: XR chest 1V portable CLINICAL HISTORY: Sepsis. TECHNIQUE: An X-ray image of the chest is obtained in AP projection. COMPARISON: No prior studies are available for comparison. FINDINGS: Pulmonary Parenchyma: Prominent hilar bronchopulmonary vasculature (more on the right side with mild basal reticulations). Lungs are clear bilaterally. No evidence of consolidation, collapse, or focal opacities. No pulmonary nodules are identified. No evidence of pleural effusion or pleural thickening. Heart and Mediastinum: Heart size and shape are normal. No mediastinal widening or masses. No hilar or mediastinal lymphadenopathy. Bony Thorax: Bony thorax appears intact without fractures or deformities. Soft Tissues: Soft tissues overlying the chest wall are unremarkable. IMPRESSION: 1. Prominent hilar bronchopulmonary vasculature (more on the right side with mild basal reticulations). 2. No acute cardiopulmonary abnormalities are identified. Electronically signed by Oj Lara 09-02-2024 05:27 AM Diagnostic Findings EKG as per my interpretation :Rate 120, sinus tachycardia, LAD, LAFB, no ischemia, PVCs Code Status & VTE Plan VTE Prophylaxis Plan VTE Prophylaxis will be ordered: Yes
[2024-09-02] MEDS ORDERED: PIPERACILLIN/TAZOBACTAM 4.5 GM/100 ML BAG IV STA (06:43)
[2024-09-02] MEDS: Patient's ALLERGY Info needs ENTERED STA (06:43)
[2024-09-02 06:47] LABS: Troponin I High Sensitivity 23.1 pg/ml (0-20)
[2024-09-02 06:57] LABS: Thyroid Stimulating Hormone 1.981 uIu/ml (0.300-4.500)
--- NOTE | 2024-09-02 07:07 | CT Scan Report ---
EXAM: CT knee RT wo con CLINICAL HISTORY: BKA, ?infection at the stump. TECHNIQUE: Thin axial images non-contrast of the right knee joint were obtained along with coronal and sagittal reconstructions. One of the following dose reduction techniques was utilized for this exam: Automated exposure control, adjustment of the mA and/or kV according to patient size, and use of iterative reconstruction. CTDI: 25mGY, DLP: 856mGy*cm. COMPARISON: None. FINDINGS: Bones: Below-knee amputation is seen at the level of the mid-shaft of the tibia. Normal alignment of the femur, tibia, fibula, and patella. No fractures or dislocations. Site of previous screws noted at tibial shaft. Joint Space: Osteoarthritic changes of the right knee joint Fabella is noted within the posterior aspect of the knee joint. Ligaments: Intact and normal appearance of the anterior cruciate ligament (ACL), posterior cruciate ligament (PCL), medial collateral ligament (MCL), and calcification of femoral attachment of lateral collateral ligament (LCL). No ligamentous injury or abnormalities. Tendons: Normal appearance of the patellar tendon, quadriceps tendon, and other tendons around the knee. Soft Tissues: Diffuse fatty infiltration of the visualized thigh and leg muscles. There is a dense soft tissue mass surrounding the popliteal artery at the popliteal fossa, measured 5x5.5 cm, which could represent a hematoma, which needs further evaluation. Extensive calcifications of the popliteal artery and its visualized branches at the upper leg. stump skin thickening and soft tissue edema at anteromedial aspect, need clinical correlation and further evaluations IMPRESSION: 1. Below knee amputation seen at level of mid shaft of tibia, with overlying skin thickening and soft tissue edema at anteriomedial aspect, could be inflammatory/infectious, need clinical correlation and further evaluations. MR is recommended. 2. Extensive calcifications of the distal SFA, popliteal artery, and its visualized branches at the upper leg. 3. There is a dense soft tissue mass surrounding the distal superficial femoral artery proximal to the popliteal fossa, measured 5 x 5.5 cm, could represent a hematoma, which needs further evaluation. 4. Diffuse fatty infiltration of the visualized thigh and leg muscles. 5. Osteoarthritic changes of the right knee joint. 6. calcification of femoral attachment of lateral collateral ligament (LCL). Electronically signed by Oj Lara 09-02-2024 07:07 AM
[2024-09-02] MEDS: Patient's HEIGHT &/or WEIGHT Needed STA (07:27)
[2024-09-02 07:29] LABS: Adenovirus F 40/41 PCR Not Detected (NotDetected); Astrovirus PCR Not Detected (NotDetected); Campylobacter PCR Not Detected (NotDetected); Cryptosporidium PCR Not Detected (NotDetected); Cyclospora cayetanensis PCR Not Detected (NotDetected); Entamoeba histolytica PCR Not Detected (NotDetected); Enteroaggregative E.coli(EAEC) Not Detected (NotDetected); Enteropathogenic E.coli (EPEC) Not Detected (NotDetected); Enterotoxigenic E.coli (ETEC) Not Detected (NotDetected); Giardia lamblia PCR Not Detected (NotDetected); Plesiomonas shigelloides PCR Not Detected (NotDetected); Rotavirus A PCR Not Detected (NotDetected); Salmonella PCR Not Detected (NotDetected); Sapovirus PCR Not Detected (NotDetected); Shiga-like Toxin E.coli (STEC) Not Detected (NotDetected); Shigella/Enteroinvasive E.coli Not Detected (NotDetected); Vibrio cholerae PCR Not Detected (NotDetected); Vibrio species PCR Not Detected (NotDetected); Yersinia enterocolitica PCR Not Detected (NotDetected)
[2024-09-02 07:55] LABS: Norovirus GI/GII PCR DETECTED (NotDetected)
[2024-09-02 07:56] LABS: Estimated Average Glucose 114 mg/dl; Hemoglobin A1C 5.6 % (4.5-5.6)
--- NOTE | 2024-09-02 08:03 | Electrocardiogram Report ---
Test Reason : Blood Pressure : */* mmHG Vent. Rate : 122 BPM Atrial Rate : 122 BPM P-R Int : 174 ms QRS Dur : 100 ms QT Int : 310 ms P-R-T Axes : 117 -49 71 degrees QTcB Int : 441 ms Sinus tachycardia with occasional Premature ventricular complexes Left anterior fascicular block Poor R wave progression, consider anterior OR vs. lead placement vs. LVH Abnormal ECG No previous ECGs available Confirmed by Keron Padilla ([id number]) on 09/02/2024 8:03:21 AM Referred By: REFERRED SELF Confirmed By: Keron Padilla
[2024-09-02] MEDS: metroNIDAZOLE 500 MG/100 ML BAG IV STA (08:20)
[2024-09-02] MEDS: PANTOprazole 40 MG TAB PO STA (09:42)
[2024-09-02] MEDS: ESCITALOPRAM OXALATE 20 MG TAB PO STA (09:42)
[2024-09-02] MEDS: PIPERACILLIN/TAZOBACTAM 4.5 GM/100 ML BAG IV STA (10:14)
[2024-09-02] MEDS ORDERED: DEXTROSE 50% 50 ML SYRINGE IV PRN (10:28)
[2024-09-02] MEDS ORDERED: CARBOHYDRATES FOR HYPOGLYCEMIA PO PRN (10:28)
[2024-09-02] MEDS ORDERED: GLUCOSE 40% GEL 15 GM TUBE PO PRN (10:28)
[2024-09-02] MEDS ORDERED: GLUCAGON FOR INJ 1 MG VIAL SQ PRN (10:28)
[2024-09-02] MEDS ORDERED: GLUCOSE 10 TAB/TUBE PO PRN (10:28)
[2024-09-02 10:44] LABS: Appearance Urine Turbid (Clear); Bacteria Urine Automated None Seen (None Seen); Bilirubin Urine Negative (Negative); Blood Urine 3+ (Negative); Cast Urine Automated >20 /lpf (0-2); Color Urine Dark Yellow; Epithelial Cell Urine Auto 0-2 /hpf (0-2); Glucose Urine UA 3+ (Negative); Granular Casts Urine Present /lpf (None Prsent); Hyaline Casts Urine Present /lpf (None Presnt); Ketones Urine Trace (Negative); Leukocyte Esterase Urine 2+ (Negative); Mucus Urine Present (None Prsent); Nitrite Urine Negative (Negative); Protein Urine 2+ (Negative); RBC Urine Automated >20 /hpf (0-2); Specific Gravity Urine 1.021 (1.000-1.030); Urobilinogen Urine Negative (Negative); WBC Urine Automated >50 /hpf (0-5)
[2024-09-02] MEDS: INSULIN ASPART PER UNIT CHARGE SC SCH (12:14)
[2024-09-02] MEDS: DAPTOmycin 700 MG in SYRINGE 0 ML IV SCH (14:59)
[2024-09-02] MEDS: GABAPENTIN 100 MG CAP PO SCH (14:59)
[2024-09-02] MEDS: PIPERACILLIN/TAZOBACTAM 4.5 GM/100 ML BAG IV SCH (15:00)
[2024-09-02] MEDS: oxyCODONE HCL IR 5 MG TAB (IMMEDIATE RELEASE) PO PRN (15:22)
--- NOTE | 2024-09-02 18:26 | Hospitalist Progress Note ---
Date of Service September 02, 2024 Assessment & Plan (1) Severe sepsis: Plan Pt is a 59yoM with PMHx significant for chronic diastolic heart failure (EF 50%, TTE 2023, CAD, A-fib status post ablation on Eliquis, hypertension, hyperlipidemia, PUD as per records, pancreatic lesion as per records, DM2 on oral medications, chronic anemia (baseline hemoglobin 12-13), chronic right ankle osteomyelitis status post BKA status post antibiotic Rx, morbid obesity, mood disorder, past tobacco abuse who presented with concern for infection. Sepsis Norovirus Infection R stump Infection SIRS plus acute renal failure plus lactic acidosis Potential sources: Gram-positive bacteremia on outpatient blood work (MRSA gene positive) rule out endocarditis Recurrent RLE osteomyelitis, hx BKA for chronic right ankle osteomyelitis sp antibiotic Rx (06/2024, [facility]) Norovirus infection CT RLE followed by MRI, r/o osteomyelitis TTE re: Gram-positive bacteremia IV fluids Follow final outpatient blood CS report drawn by [facility] at [facility] Daptomycin and Zosyn for now Consider ortho eval in AM Consider ID eval Possible hematoma in stump Holding Eliquis at this time Consider ortho eval in AM Chronic Medical Problems: chronic diastolic heart failure (EF 50%, TTE 2023, patient on the dry side hx CAD A-fib status post ablation on Eliquis hyperlipidemia, on statin Rx hx PUD as per records pancreatic lesion as per records, incidental finding on abdominal imaging last June 2024 as per records DM2 on oral medications, hemoglobin A1c of 5.7 from last year. Chronic anemia, hemoglobin at baseline past tobacco abuse Diet: DMII DVT prophylaxis. SCDs while Eliquis on hold Full code Dispo: PT/OT ordered for further recs Admission and Anticipated Discharge Date Admission Date: September 02, 2024 Subjective Pt was seen while still down in the ER, was having breakfast at the time AAOx3 States that his diarrhea was improving Review of Systems Review of Systems: All systems reviewed & are unremarkable except as noted in Subjective Physical Exam Physical Exam: General: Alert, oriented. No acute distress Skin: R BKA stump with fluctuance, slight erythema HEENT: NC/AT CV: RRR Resp: Breath sounds clear bilaterally, no increased effort of breathing Abdomen: Soft, nontender Extremities: R BKA stump with fluctuance, slight erythema Results & Data Results & Data Vital Signs (Past 12 Hours) Vital Signs Temp Pulse Pulse Resp BP BP Pulse Ox 09/02/24 11:15 36.6 C 82 15 102/69 97 09/02/24 09:18 86 09/02/24 07:14 90 18 98 09/02/24 07:13 36.8 C 90 19 102/66 98 09/02/24 07:12 97 09/02/24 06:21 93 H 18 89/54 L 97 09/02/24 05:01 81 16 94/66 L 97 09/02/24 04:30 87 20 91/63 L 97 09/02/24 04:16 89 09/02/24 03:50 36.5 C 120 H 25 H 90/69 L 98 O2 Del Method 09/02/24 11:15 Room Air 09/02/24 09:18 09/02/24 07:14 Room Air 09/02/24 07:13 Room Air 09/02/24 07:12 Room Air 09/02/24 06:21 Room Air 09/02/24 05:01 Room Air 09/02/24 04:30 Room Air 09/02/24 04:16 09/02/24 03:50 Room Air
[2024-09-02 21:16] LABS: A calco-baum cmplx NotReported Not Detected (NotDetected); Bact fragilis Not Reported Not Detected (NotDetected); Blood Culture Id Panel See PCR Comment (NotDetected); C auris Not Reported Not Detected (NotDetected); Calbicans Not Reported Not Detected (NotDetected); Candida glabrata Not Reported Not Detected (NotDetected); Candida krusei Not Reported Not Detected (NotDetected); Cneoformans/gatti Not Reported Not Detected (NotDetected); Cparapsilosis Not Reported Not Detected (NotDetected); E cloacae compx Not Reported Not Detected (NotDetected); Efaecalis Not Reported Not Detected (NotDetected); Efaecium Not Reported Not Detected (NotDetected); Enterobacterales Not Reported Not Detected (NotDetected); Escherichia coli Not Reported Not Detected (NotDetected); H influenzae Not Reported Not Detected (NotDetected); K aerogenes Not Reported Not Detected (NotDetected); Koxytoca Not Reported Not Detected (NotDetected); Kpneumoniae grp Not Reported Not Detected (NotDetected); Lmonocyt Not Reported Not Detected (NotDetected); N meningitidis Not Reported Not Detected (NotDetected); P aeruginosa Not Reported Not Detected (NotDetected); Proteus spp Not Reported Not Detected (NotDetected); Salmonella spp Not Reported Not Detected (NotDetected); Staph lugdunensis Not Reported Not Detected (NotDetected); Staph spp. Not Reported DETECTED (NotDetected); Staphaureus Not Reported DETECTED (NotDetected); Staphepi Not Reported Not Detected (NotDetected); Staphylococcus spp. DETECTED (NotDetected); Stenmaltophilia Not Reported Not Detected (NotDetected); Strep agal(GrpB) Not Reported Not Detected (NotDetected); Strep pneum Not Reported Not Detected (NotDetected); Strep pyog (GrpA) Not Reported Not Detected (NotDetected); Strep spp Not Reported Not Detected (NotDetected)
[2024-09-02 21:24] LABS: mecAC+MREJ Resistant Gene MRSA DETECTED (NotDetected)
[2024-09-02] MEDS: SACCHAROMYCES BOULARDII 250 MG CAP PO SCH (21:58)
[2024-09-03 07:36] LABS: Basophils # (auto) 0.04 K/uL (0.00-0.20); Basophils % (auto) 0.2 %; Eosinophils # (auto) 0.23 K/uL (0.00-0.50); Eosinophils % (auto) 1.3 %; Hemoglobin 11.1 g/dl (14.0-18.0); Immature Granulocytes # (auto) 0.33 K/uL (0.01-0.20); Immature Granulocytes % (auto) 1.9 %; Lymphocytes # (auto) 1.29 K/uL (1.20-3.40); Lymphocytes % (auto) 7.4 %; Mean Corpuscular Hemoglobin 27.3 pg (25.0-34.0); Mean Corpuscular Hgb Conc 32.6 g/dL (32.0-36.0); Mean Corpuscular Volume 83.5 fL (80.0-100.0); Mean Platelet Volume 10.1 fL (9.4-12.4); Monocytes # (auto) 1.48 K/uL (0.11-0.59); Monocytes % (auto) 8.5 %; Neutrophils # (auto) 14.02 K/uL (1.40-6.50); Neutrophils % (auto) 80.7 %; Platelet Count 248 K/uL (130-400); RDW Standard Deviation 45.7 fL (36.4-46.3); Red Blood Count 4.07 M/uL (4.70-6.10); White Blood Count 17.39 K/ul (4.8-10.8)
[2024-09-03 08:03] LABS: Albumin Globulin Ratio 0.8 (0.9-2); Albumin Level 2.9 gm/dl (3.4-5.0); Bilirubin,Total 0.7 mg/dl (0.2-1.0); Calcium 8.1 mg/dl (8.6-10.3); Globulin 3.6 gm/dl (2.5-4.0); Magnesium 1.6 mg/dl (1.7-2.4); Phosphorus 3.9 mg/dl (2.5-4.9); Potassium 4.7 mmol/L (3.5-5.1); Total Protein 6.5 gm/dl (6.0-8.3)
[2024-09-03] MEDS: ATORVASTATIN 40 MG TAB PO SCH (08:09)
[2024-09-03] MEDS: ESCITALOPRAM OXALATE 20 MG TAB PO SCH (08:10)
[2024-09-03] MEDS: PANTOprazole 40 MG TAB PO SCH (08:10)
--- NOTE | 2024-09-03 08:16 | Hospitalist Progress Note ---
Date of Service September 03, 2024 Assessment & Plan (1) Severe sepsis: Plan Pt is a 59yoM with PMHx significant for chronic diastolic heart failure (EF 50%, TTE 2023, CAD, A-fib status post ablation on Eliquis, hypertension, hyperlipidemia, PUD as per records, pancreatic lesion as per records, DM2 on oral medications, chronic anemia (baseline hemoglobin 12-13), chronic right ankle osteomyelitis status post BKA status post antibiotic Rx, morbid obesity, mood disorder, past tobacco abuse who presented with concern for infection. Sepsis Norovirus Infection R stump Osteomyelitis with Abscess Gram positive Bacteremia SIRS plus acute renal failure plus lactic acidosis Potential sources: Gram-positive bacteremia on outpatient blood work (MRSA gene positive) rule out endocarditis Recurrent RLE osteomyelitis, hx BKA for chronic right ankle osteomyelitis sp antibiotic Rx (06/2024, [facility]) Norovirus infection CT RLE concerning for infection MRI noting osteomyelitis with abscess and possible hematoma vs. pseudoaneurysm TTE re: Gram-positive bacteremia without noted visible vegetations Blood Cx 2 sets from 09/02/24 growing gram positive cocci currently in 2 bottles, further defined in 2 other bottles as staph aureus. Repeat blood cultures needed on 09/04/24. IV fluids Follow final outpatient blood CS report drawn by [employer] labs at [facility] Treated with IV Daptomycin and Zosyn Orthopedics consulted, appreciate recs. Dr Gentile noted the following: "...Discussed with the patient that his laboratory results suggest he has an infection going on, however it is not clear what the source is. It is possible that he has a cellulitis around his incision site from below-knee amputation. Do not believe the hematoma seen on the CT scan is infected given his clinical exam...He is not hemodynamically unstable. No emergent surgery indicated. He does need to have follow-up for his below-knee amputation. This will need to be with the performing surgeon at [facility]. Recommend transfer of the patient to [facility] tomorrow for additional evaluation by his treating surgeon. IV antibiotics per the medicine team. No weightbearing through the right below-knee amputation stump..." Pt will need evaluation by Infectious Disease for further antibiotic regimen Pt to be transferred to [facility] for further evaluation and management per the recommendations of Orthopedics. Possible hematoma in stump Holding Eliquis and plavix at this time Ortho recs as per above. Acute Kidney Disease Pt with Cr of 2.23 on admission Uncertain baseline IV fluids Hold nephrotoxic meds Continue to monitor Chronic Medical Problems: chronic diastolic heart failure hx CAD A-fib status post ablation on Eliquis hyperlipidemia, on statin Rx hx PUD as per records pancreatic lesion as per records, incidental finding on abdominal imaging last June 2024 as per records DM2 on oral medications, hemoglobin A1c of 5.7 from last year. Chronic anemia, hemoglobin at baseline past tobacco abuse Admission and Anticipated Discharge Date Admission Date: September 02, 2024 Subjective pt was seen in the AM laying in bed. [facility] States that pain in the stump is much better Review of Systems Review of Systems: All systems reviewed & are unremarkable except as noted in Subjective Physical Exam Physical Exam: General: Alert, oriented. No acute distress Skin: R BKA stump with fluctuance, slight erythema HEENT: NC/AT CV: RRR Resp: Breath sounds clear bilaterally, no increased effort of breathing Abdomen: Soft, nontender Extremities: R BKA stump with fluctuance, erythema Results & Data Results & Data Vital Signs (Past 12 Hours) Vital Signs Temp Pulse Pulse Resp BP BP Pulse Ox 09/03/24 07:08 36.8 C 86 18 104/67 97 09/03/24 02:58 36.9 C 86 18 113/70 97 09/02/24 22:37 36.6 C 77 18 125/75 98 09/02/24 21:55 68 09/02/24 21:29 O2 Del Method 09/03/24 07:08 Room Air 09/03/24 02:58 Room Air 09/02/24 22:37 Room Air 09/02/24 21:55 09/02/24 21:29 Room Air
[2024-09-03] MEDS: SODIUM CHLORIDE 0.9% 1,000 ML IV SCH (09:00)
--- NOTE | 2024-09-03 12:55 | XRay Report ---
ORBIT RADIOGRAPHS 3 VIEWS HISTORY: pre-MRI screening. COMPARISON: None. FINDINGS: There are no radiopaque foreign bodies identified within the orbits. IMPRESSION: No radiopaque foreign bodies identified within the orbits. ACT 112: Negative or not required by law. Electronically signed by: Ric Corona M.D. 09/03/2024 12:53 PM
--- NOTE | 2024-09-03 13:05 | Orthopedic Consultation ---
Date of Consultation September 03, 2024 Assessment & Plan (1) Status post below-knee amputation: (2) Sepsis: Discussed with the patient that his laboratory results suggest he has an infection going on, however it is not clear what the source is. It is possible that he has a cellulitis around his incision site from below-knee amputation. Do not believe the hematoma seen on the CT scan is infected given his clinical exam. He is not hemodynamically unstable. No emergent surgery indicated. He does need to have follow-up for his below-knee amputation. This will need to be with the performing surgeon at [facility]. Recommend transfer of the patient to [facility] tomorrow for additional evaluation by his treating surgeon. IV antibiotics per the medicine team. No weightbearing through the right below- knee amputation stump. History of Present Illness Reason for Consultation: Eval right below-knee amputation Attending Physician: Bernice Tasi MD History of Present Illness 59-year-old male, with past medical history significant for chronic diastolic heart failure (EF 50%, TTE 2023, CAD, A-fib status post ablation on Eliquis, hypertension, hyperlipidemia, PUD as per records, pancreatic lesion as per records, DM2 on oral medications, chronic anemia (baseline hemoglobin 12-13), chronic right ankle osteomyelitis status post BKA status post antibiotic Rx, morbid obesity, mood disorder, past tobacco abuse. Patient admitted at [facility] facility October 2023 for right ankle fracture. Patient states he broke his ankle fishing but did not seek medical attention for about a month. He underwent surgical treatment of his ankle fracture followed by multiple revision surgeries and antibiotic courses for gram-negative bacteremia for RLE osteomyelitis. Recent confinement [facility] for septic right ankle joint status post right BKA last June 2024. Patient believes it was Dr. Sadler who did his below-knee amputation, however a Dr. Velez is also named in his records. Capnocytophagia bacteremia on blood cultures. Patient completed daptomycin and Zosyn course following ID recommendations. Patient unable to go home and live independently after confinement. Subsequent rehab and placement at [facility]. 2 days ago, patient noted fever, chills and diarrhea symptoms. Right BKA stump aching more than usual. Denies chest pain, cough or abdominal pain. Outpatient provider requested for blood cultures, chemistries. Serum creatinine 1.8 from normal baseline. Outpatient COVID-19, RSV, and flu swabs negative. Abnormal blood cultures later resulted. Anaerobic bottle gram-positive cocci in clusters. Aerobic bottle gram-positive cocci in clusters. Staphylococcus aureus DNA positive, MecA and MREJ (methicillin resistance genes) positive Patient directed to ER for evaluation. Lowest SBP of 80s documented at the ER. Vancomycin and cefepime administered at the ER. CT scan done of the right knee in the emergency room showed a possible hematoma as well as soft tissue edema near the stump concerning for possible infection. Orthopedics was consulted for evaluation. Patient was seen and examined on the floor. He reports no significant pain in the stump today. Denies any fevers or chills. Patient states he has not seen his surgeon who performed a below-knee amputation since the date of surgery in June. Allergies Allergy/AdvReac Type Severity Reaction Status Date / Time No Known Allergies Allergy Verified 09/02/24 06:20 Home Medications Medication Instructions Recorded Confirmed Type Saccharomyces boulardii 250 mg 250 mg PO BID 09/02/24 09/02/24 History capsule (Probiotic (S.boulardii)) apixaban 5 mg tablet 5 mg PO BID 09/02/24 09/02/24 History atorvastatin 40 mg tablet (Lipitor) 40 mg PO DAILY 09/02/24 09/02/24 History clopidogrel 75 mg tablet (Plavix) 75 mg PO DAILY 09/02/24 09/02/24 History dapagliflozin propanediol 10 mg 10 mg PO DAILY 09/02/24 09/02/24 History tablet (Farxiga) dulaglutide 3 mg/0.5 mL 3 mg subcut Q7D 09/02/24 09/02/24 History subcutaneous pen injector (Trulicity) escitalopram oxalate 20 mg tablet 20 mg PO DAILY 09/02/24 09/02/24 History gabapentin 300 mg capsule 300 mg PO TID 09/02/24 09/02/24 History ipratropium 0.5 mg-albuterol 3 mg 3 ml inhalation Q4H PRN Wheezing 09/02/24 09/02/24 History (2.5 mg base)/3 mL nebulization soln metoprolol succinate 50 mg 50 mg PO DAILY 09/02/24 09/02/24 History tablet,extended release 24 hr (Toprol XL) pantoprazole 40 mg tablet,delayed 40 mg PO DAILY 09/02/24 09/02/24 History release potassium chloride 20 mEq 20 meq PO DAILY 09/02/24 09/02/24 History tablet,extended release sacubitril 97 mg-valsartan 103 mg 1 tab PO BID 09/02/24 09/02/24 History tablet (Entresto) tramadol 50 mg tablet 50 mg PO Q6H PRN Pain (Scale Score 09/02/24 09/02/24 History 4-6) Patient History Medical History Hypertension Social History Smoking Status: Never smoker Hx Alcohol Use: No Hx Substance Use: No Preferred Language: [place]ian Communication Ability: Effective [employer] Required: No Beliefs That Will Affect Care: None Current Living Situation: Rehab Other Information That Helps Us Care for You: No Feels Safe at Home: Yes Safety Concerns: Feels Safe At This Time Assistive Devices: Cane and Walker Physical Exam Physical Exam: On exam he is a pleasant male in no acute distress, obese, alert and oriented x 3. Appropriately conversational. Right lower extremity exam reveals the patient have a below-knee amputation. There is a area of eschar along the about 3 cm of the incision. Minimal erythema or swelling on my exam today. He has a small dressing in place over the anterior aspect of the leg where there is some superficial irritation of the skin. There is no active drainage. In the popliteal fossa he has some mild area of swelling which is nontender to palpation. There is no redness in this location. He is able to move his knee without any major discomfort. Results & Data Vital Signs (Past 12 Hours) Vital Signs Temp Pulse Pulse Resp BP BP Pulse Ox 09/03/24 10:55 36.9 C 86 18 97/61 L 96 09/03/24 08:00 89 09/03/24 07:08 36.8 C 86 18 104/67 97 09/03/24 02:58 36.9 C 86 18 113/70 97 O2 Del Method 09/03/24 10:55 Room Air 09/03/24 08:00 09/03/24 07:08 Room Air 09/03/24 02:58 Room Air Diagnostic Findings I reviewed his CT scan done yesterday and agree with the radiologist that there is a hematoma adjacent in the posterior knee popliteal fossa. Some thickening of the skin. Appears to be holes in the bone from prior external fixator placement. No evidence of osteomyelitis.
[2024-09-03] MEDS: GADOBUTROL 65ML VIAL IV ONE (13:49)
--- NOTE | 2024-09-03 14:19 | Magnetic Resonance Report ---
MRI right lower extremity with and without IV contrast History: Below-knee amputation with possible infection Comparison: CT from September 02, 2024 Technique: Multiphasic, multisequence MRI of the right lower extremity performed with and without IV contrast. Findings: Redemonstrated is a below-knee amputation at the level of the mid tibial shaft with overlying skin thickening and soft tissue edema, especially about the anteromedial aspect. An irregular, lobulated and rim-enhancing collection is seen about the anteromedial aspect of the tibia, in the coronal plane this measures approximately 3.3 x 2.0 cm, and 3.0 cm in the AP dimension, and is seen to surround the distal aspect of the resected bone. There is extensive surrounding edema and inflammatory fat stranding. Within the distalmost aspect of the tibial intramedullary space is an area of significant low T1-weighted signal in the coronal plane measuring 1.5 x 1.8 cm. Evidence of prior distal tibial screw track burch. Generalized edema is seen throughout the remaining lower leg about the calf musculature without additional fluid collection. Suboptimal evaluation of the knee joint due to the chosen protocol and field of view. There is some degenerative extrusion of the medial and lateral menisci. The anterior and posterior cruciate ligaments are intact. Physiologic knee joint fluid seen. Within the musculature posterior to the distal aspect of the femur, there is a rounded structure, measuring 6.2 x 4.6 x 5.7 cm. This has a heterogeneous and laminated appearance, with the central portion demonstrating mildly high T1 and high T2 weighted signal, with the bulk of the structure and outer portion demonstrating low T2 and heterogeneous intermediate T1 weighted signal. There appears to be non-mass like surrounding reactive enhancement and edema. The central portion appears to enhance. Impression: 1. There is a small area of intramedullary osteomyelitis involving the distal remaining tibia at the resection site, status post below-knee amputation. An irregular small collection within the adjacent soft tissues anterior medial to the bone is consistent with an abscess. 2. A 6.2 cm rounded structure is seen posterior to the distal aspect of the femur in the right lower extremity, and is indeterminate. The central portion appears to enhance, and a avascular structure, such as a pseudoaneurysm would need to be excluded. Otherwise this may represent an evolving hematoma. Further evaluation with CT angiogram would be helpful. Electronically signed by Mikal Good 09-03-2024 2:18 PM
--- NOTE | 2024-09-03 16:39 | Discharge Summary ---
Discharge Summary Date of Service September 03, 2024 Principal Dx & Hospital Course #1 = Principal Diagnosis (1) Severe sepsis: Plan Pt is a 59yoM with PMHx significant for chronic diastolic heart failure (EF 50%, TTE 2023, CAD, A-fib status post ablation on Eliquis, hypertension, hyperlipidemia, PUD as per records, pancreatic lesion as per records, DM2 on oral medications, chronic anemia (baseline hemoglobin 12-13), chronic right ankle osteomyelitis status post BKA status post antibiotic Rx, morbid obesity, mood disorder, past tobacco abuse who presented with concern for infection. Sepsis Norovirus Infection R stump Osteomyelitis with Abscess Gram positive Bacteremia SIRS plus acute renal failure plus lactic acidosis Potential sources: Gram-positive bacteremia on outpatient blood work (MRSA gene positive) rule out endocarditis Recurrent RLE osteomyelitis, hx BKA for chronic right ankle osteomyelitis sp antibiotic Rx (06/2024, [facility]) Norovirus infection CT RLE concerning for infection MRI noting osteomyelitis with abscess and possible hematoma vs. pseudoaneurysm TTE re: Gram-positive bacteremia without noted visible vegetations Blood Cx 2 sets from 09/02/24 growing gram positive cocci currently in 2 bottles, further defined in 2 other bottles as staph aureus. Repeat blood cultures needed on 09/04/24. IV fluids Follow final outpatient blood CS report drawn by [facility] at [facility] Treated with IV Daptomycin and Zocrystal Orthopedics consulted, appreciate recs. Dr Gentile noted the following: "...Discussed with the patient that his laboratory results suggest he has an infection going on, however it is not clear what the source is. It is possible that he has a cellulitis around his incision site from below-knee amputation. Do not believe the hematoma seen on the CT scan is infected given his clinical exam...He is not hemodynamically unstable. No emergent surgery indicated. He does need to have follow-up for his below-knee amputation. This will need to be with the performing surgeon at [facility]. Recommend transfer of the patient to [facility] tomorrow for additional evaluation by his treating surgeon. IV antibiotics per the medicine team. No weightbearing through the right below-knee amputation stump..." Pt will need evaluation by Infectious Disease for further antibiotic regimen Pt to be transferred to [facility] for further evaluation and management per the recommendations of Orthopedics. Possible hematoma in stump Holding Eliquis and plavix at this time Ortho recs as per above. Acute Kidney Disease Pt with Cr of 2.23 on admission Uncertain baseline IV fluids Hold nephrotoxic meds Continue to monitor Chronic Medical Problems: chronic diastolic heart failure hx CAD A-fib status post ablation on Eliquis hyperlipidemia, on statin Rx hx PUD as per records pancreatic lesion as per records, incidental finding on abdominal imaging last June 2024 as per records DM2 on oral medications, hemoglobin A1c of 5.7 from last year. Chronic anemia, hemoglobin at baseline past tobacco abuse Notes For Next Care Provider Pt transferred to [facility] per the recommendations of orthopedics for the services of his treating surgeon there. Pt with R BKA stump osteomyelitis with abscess, possible hematoma Medication Changes From Visit Pt transferred to [facility] Admission HPI Per Admitting Provider History obtained from patient and records. Medical history significant for chronic diastolic heart failure (EF 50%, TTE 2023, CAD, A-fib status post ablation on Eliquis, hypertension, hyperlipidemia, PUD as per records, pancreatic lesion as per records, DM2 on oral medications, chronic anemia (baseline hemoglobin 12-13), chronic right ankle osteomyelitis status post BKA status post antibiotic Rx, morbid obesity, mood disorder, past tobacco abuse. Patient admitted at [facility] facility October 2023 for right ankle fracture dislocation status post surgery. Multiple revision surgeries and debridements and antibiotic courses for gram- negative bacteremia for RLE osteomyelitis. Recent confinement [facility] for septic right ankle joint status post right BKA last June [address] Velez. Capnocytophagia bacteremia on blood cultures. Patient completed daptomycin and Zosyn course following ID recommendations. Patient unable to go home and live independently after confinement. Subsequent rehab and placement at [facility]. 2 days ago, patient noted fever, chills and diarrhea symptoms. Right BKA stump aching more than usual. Denies chest pain, cough or abdominal pain. Outpatient provider requested for blood cultures, chemistries. Serum creatinine 1.8 from normal baseline. Outpatient COVID-19, RSV, and flu swabs negative. Abnormal blood cultures later resulted. Anaerobic bottle gram-positive cocci in clusters. Aerobic bottle gram-positive cocci in clusters. Staphylococcus aureus DNA positive, MecA and MREJ (methicillin resistance genes) positive Patient directed to ER for evaluation. Lowest SBP of 80s documented at the ER. Vancomycin and cefepime administered at the ER. 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 No acute distress Skin: R BKA stump with fluctuance, slight erythema HEENT: NC/AT CV: RRR Resp: Breath sounds clear bilaterally, no increased effort of breathing Abdomen: Soft, nontender Extremities: R BKA stump with fluctuance, erythema Updated Medication List Medication Instructions Recorded Confirmed Type Saccharomyces boulardii 250 mg 250 mg PO BID 09/02/24 09/02/24 History capsule (Probiotic (S.boulardii)) apixaban 5 mg tablet 5 mg PO BID 09/02/24 09/02/24 History atorvastatin 40 mg tablet (Lipitor) 40 mg PO DAILY 09/02/24 09/02/24 History clopidogrel 75 mg tablet (Plavix) 75 mg PO DAILY 09/02/24 09/02/24 History dapagliflozin propanediol 10 mg 10 mg PO DAILY 09/02/24 09/02/24 History tablet (Farxiga) dulaglutide 3 mg/0.5 mL 3 mg subcut Q7D 09/02/24 09/02/24 History subcutaneous pen injector (Trulicity) escitalopram oxalate 20 mg tablet 20 mg PO DAILY 09/02/24 09/02/24 History gabapentin 300 mg capsule 300 mg PO TID 09/02/24 09/02/24 History ipratropium 0.5 mg-albuterol 3 mg 3 ml inhalation Q4H PRN Wheezing 09/02/24 09/02/24 History (2.5 mg base)/3 mL nebulization soln metoprolol succinate 50 mg 50 mg PO DAILY 09/02/24 09/02/24 History tablet,extended release 24 hr (Toprol XL) pantoprazole 40 mg tablet,delayed 40 mg PO DAILY 09/02/24 09/02/24 History release potassium chloride 20 mEq 20 meq PO DAILY 09/02/24 09/02/24 History tablet,extended release sacubitril 97 mg-valsartan 103 mg 1 tab PO BID 09/02/24 09/02/24 History tablet (Entresto) tramadol 50 mg tablet 50 mg PO Q6H PRN Pain (Scale Score 09/02/24 09/02/24 History 4-6) Hospital Stay Data Consultations 09/02/24 05:33 ED Decision to Admit Stat 09/03/24 08:10 Consult Orthopedic Surgery Routine 09/03/24 16:16 Consult Infectious Diseases Routine Diagnostic Imagining Performed 09/02/24 05:05 CT knee RT wo con Stat 09/03/24 09:19 MR lower leg RT wo/w con Urgent Chest X-Ray 09/02/24 04:21 EXAM: XR chest 1V portable CLINICAL HISTORY: Sepsis. TECHNIQUE: An X-ray image of the chest is obtained in AP projection. COMPARISON: No prior studies are available for comparison. FINDINGS: Pulmonary Parenchyma: Prominent hilar bronchopulmonary vasculature (more on the right side with mild basal reticulations). Lungs are clear bilaterally. No evidence of consolidation, collapse, or focal opacities. No pulmonary nodules are identified. No evidence of pleural effusion or pleural thickening. Heart and Mediastinum: Heart size and shape are normal. No mediastinal widening or masses. No hilar or mediastinal lymphadenopathy. Bony Thorax: Bony thorax appears intact without fractures or deformities. Soft Tissues: Soft tissues overlying the chest wall are unremarkable. IMPRESSION: 1. Prominent hilar bronchopulmonary vasculature (more on the right side with mild basal reticulations). 2. No acute cardiopulmonary abnormalities are identified. Electronically signed by Oj Lara 09-02-2024 05:[address] 09/02/24 05:05 EXAM: CT knee RT wo con CLINICAL HISTORY: BKA, ?infection at the stump. TECHNIQUE: Thin axial images non-contrast of the right knee joint were obtained along with coronal and sagittal reconstructions. One of the following dose reduction techniques was utilized for this exam: Automated exposure control, adjustment of the mA and/or kV according to patient size, and use of iterative reconstruction. CTDI: 25mGY, DLP: 856mGy*cm. COMPARISON: None. FINDINGS: Bones: Below-knee amputation is seen at the level of the mid-shaft of the tibia. Normal alignment of the femur, tibia, fibula, and patella. No fractures or dislocations. Site of previous screws noted at tibial shaft. Joint Space: Osteoarthritic changes of the right knee joint Fabella is noted within the posterior aspect of the knee joint. Ligaments: Intact and normal appearance of the anterior cruciate ligament (ACL), posterior cruciate ligament (PCL), medial collateral ligament (MCL), and calcification of femoral attachment of lateral collateral ligament (LCL). No ligamentous injury or abnormalities. Tendons: Normal appearance of the patellar tendon, quadriceps tendon, and other tendons around the knee. Soft Tissues: Diffuse fatty infiltration of the visualized thigh and leg muscles. There is a dense soft tissue mass surrounding the popliteal artery at the popliteal fossa, measured 5x5.5 cm, which could represent a hematoma, which needs further evaluation. Extensive calcifications of the popliteal artery and its visualized branches at the upper leg. stump skin thickening and soft tissue edema at anteromedial aspect, need clinical correlation and further evaluations IMPRESSION: 1. Below knee amputation seen at level of mid shaft of tibia, with overlying skin thickening and soft tissue edema at anteriomedial aspect, could be inflammatory/infectious, need clinical correlation and further evaluations. MR is recommended. 2. Extensive calcifications of the distal SFA, popliteal artery, and its visualized branches at the upper leg. 3. There is a dense soft tissue mass surrounding the distal superficial femoral artery proximal to the popliteal fossa, measured 5 x 5.5 cm, could represent a hematoma, which needs further evaluation. 4. Diffuse fatty infiltration of the visualized thigh and leg muscles. 5. Osteoarthritic changes of the right knee joint. 6. calcification of femoral attachment of lateral collateral ligament (LCL). Electronically signed by Oj Lara 09-02-2024 07:07 AM Lower Extremity MRI 09/03/24 09:19 MRI right lower extremity with and without IV contrast History: Below-knee amputation with possible infection Comparison: CT from September 02, 2024 Technique: Multiphasic, multisequence MRI of the right lower extremity performed with and without IV contrast. Findings: Redemonstrated is a below-knee amputation at the level of the mid tibial shaft with overlying skin thickening and soft tissue edema, especially about the anteromedial aspect. An irregular, lobulated and rim-enhancing collection is seen about the anteromedial aspect of the tibia, in the coronal plane this measures approximately 3.3 x 2.0 cm, and 3.0 cm in the AP dimension, and is seen to surround the distal aspect of the resected bone. There is extensive surrounding edema and inflammatory fat stranding. Within the distalmost aspect of the tibial intramedullary space is an area of significant low T1-weighted signal in the coronal plane measuring 1.5 x 1.8 cm. Evidence of prior distal tibial screw track burch. Generalized edema is seen throughout the remaining lower leg about the calf musculature without additional fluid collection. Suboptimal evaluation of the knee joint due to the chosen protocol and field of view. There is some degenerative extrusion of the medial and lateral menisci. The anterior and posterior cruciate ligaments are intact. Physiologic knee joint fluid seen. Within the musculature posterior to the distal aspect of the femur, there is a rounded structure, measuring 6.2 x 4.6 x 5.7 cm. This has a heterogeneous and laminated appearance, with the central portion demonstrating mildly high T1 and high T2 weighted signal, with the bulk of the structure and outer portion demonstrating low T2 and heterogeneous intermediate T1 weighted signal. There appears to be non-mass like surrounding reactive enhancement and edema. The central portion appears to enhance. Impression: 1. There is a small area of intramedullary osteomyelitis involving the distal remaining tibia at the resection site, status post below-knee amputation. An irregular small collection within the adjacent soft tissues anterior medial to the bone is consistent with an abscess. 2. A 6.2 cm rounded structure is seen posterior to the distal aspect of the femur in the right lower extremity, and is indeterminate. The central portion appears to enhance, and a avascular structure, such as a pseudoaneurysm would need to be excluded. Otherwise this may represent an evolving hematoma. Further evaluation with CT angiogram would be helpful. Electronically signed by Mikal Good 09-03-2024 2:18 PM Orbit X-Ray 09/03/24 10:46 ORBIT RADIOGRAPHS 3 VIEWS HISTORY: pre-MRI screening. COMPARISON: None. FINDINGS: There are no radiopaque foreign bodies identified within the orbits. IMPRESSION: No radiopaque foreign bodies identified within the orbits. ACT 112: Negative or not required by law. Electronically signed by: Ric Corona M.D. 09/03/2024 12:53 PM Discharge Instructions Given to Patient (Per Discharging Provider) Pt is a 59yoM with PMHx significant for chronic diastolic heart failure (EF 50%, TTE 2023, CAD, A-fib status post ablation on Eliquis, hypertension, hyperlipidemia, PUD as per records, pancreatic lesion as per records, DM2 on oral medications, chronic anemia (baseline hemoglobin 12-13), chronic right ank le osteomyelitis status post BKA status post antibiotic Rx, morbid obesity, mood disorder, past tobacco abuse who presented with concern for infection. Sepsis Norovirus Infection R stump Osteomyelitis with Abscess Gram positive Bacteremia SIRS plus acute renal failure plus lactic acidosis Potential sources: Gram-positive bacteremia on outpatient blood work (MRSA gene positive) rule out endocarditis Recurrent RLE osteomyelitis, hx BKA for chronic right ankle osteomyelitis sp antibiotic Rx (06/2024, [facility]) Norovirus infection CT RLE concerning for infection MRI noting osteomyelitis with abscess and possible hematoma vs. pseudoaneurysm TTE re: Gram-positive bacteremia without noted visible vegetations Blood Cx 2 sets from 09/02/24 growing gram positive cocci currently in 2 bottles, further defined in 2 other bottles as staph aureus. Repeat blood cultures needed on 09/04/24. IV fluids Follow final outpatient blood CS report drawn by [facility] at [facility] Treated with IV Daptomycin and Zosyn Orthopedics consulted, appreciate recs. Dr Gentile noted the following: "...Discussed with the patient that his laboratory results suggest he has an infection going on, however it is not clear what the source is. It is possible that he has a cellulitis around his incision site from below-knee amputation. Do not believe the hematoma seen on the CT scan is infected given his clinical exam...He is not hemodynamically unstable. No emergent surgery indicated. He does need to have follow-up for his below-knee amputation. This will need to be with the performing surgeon at [facility]. Recommend transfer of the patient to [facility] tomorrow for additional evaluation by his treating surgeon. IV antibiotics per the medicine team. No weightbearing through the right below-knee amputation stump..." Pt will need evaluation by Infectious Disease for further antibiotic regimen Pt to be transferred to [facility] for further evaluation and management per the recommendations of Orthopedics. Possible hematoma in stump Holding Eliquis and plavix at this time Ortho recs as per above. Acute Kidney Disease Pt with Cr of 2.23 on admission Uncertain baseline IV fluids Hold nephrotoxic meds Continue to monitor Chronic Medical Problems: chronic diastolic heart failure hx CAD A-fib status post ablation on Eliquis hyperlipidemia, on statin Rx hx PUD as per records pancreatic lesion as per records, incidental finding on abdominal imaging last June 2024 as per records DM2 on oral medications, hemoglobin A1c of 5.7 from last year. Chronic anemia, hemoglobin at baseline past tobacco abuse Total Time Total Time Spent Total Time Spent (In Minutes): 60
[2024-09-03] MEDS: SODIUM CHLORIDE 0.9% 500 ML IV ONE (17:14)
[2024-09-04 03:48] VITALS: RESP 18
[2024-09-04] MEDS: MAGNESIUM SULFATE / D5W 1 GM/100 ML BAG IV SCH (05:31)
[2024-09-04] MEDS: METOPROLOL TARTRATE 25 MG TAB PO STA (05:41)
[2024-09-04 06:30] LABS: Basophils # (auto) 0.06 K/uL (0.00-0.20); Basophils % (auto) 0.3 %; Eosinophils % (auto) 1.7 %; Hematocrit (blood only) 32.5 % (42.0-52.0); Hemoglobin 10.5 g/dl (14.0-18.0); Immature Granulocytes # (auto) 0.26 K/uL (0.01-0.20); Immature Granulocytes % (auto) 1.5 %; Lymphocytes # (auto) 1.26 K/uL (1.20-3.40); Lymphocytes % (auto) 7.1 %; Mean Corpuscular Hemoglobin 27.6 pg (25.0-34.0); Mean Corpuscular Hgb Conc 32.3 g/dL (32.0-36.0); Mean Corpuscular Volume 85.5 fL (80.0-100.0); Mean Platelet Volume 9.5 fL (9.4-12.4); Monocytes # (auto) 1.75 K/uL (0.11-0.59); Monocytes % (auto) 9.8 %; Neutrophils # (auto) 14.23 K/uL (1.40-6.50); Neutrophils % (auto) 79.6 %; Platelet Count 324 K/uL (130-400); RDW Coefficient of Variation 15.4 % (11.5-14.5); RDW Standard Deviation 48.5 fL (36.4-46.3); White Blood Count 17.86 K/ul (4.8-10.8)
[2024-09-04 06:55] LABS: Albumin Globulin Ratio 0.8 (0.9-2); Albumin Level 2.8 gm/dl (3.4-5.0); BUN Creatinine Ratio 20.9 (10-20); Bilirubin,Total 0.7 mg/dl (0.2-1.0); Calcium 8.1 mg/dl (8.6-10.3); Creatinine Clr Calc Pharmacy 48.9 ml/min; Globulin 3.5 gm/dl (2.5-4.0); Magnesium 1.7 mg/dl (1.7-2.4); Phosphorus 3.8 mg/dl (2.5-4.9); Potassium 4.4 mmol/L (3.5-5.1); Total Protein 6.3 gm/dl (6.0-8.3)
[2024-09-04 11:19] VITALS: PULSE 98; TEMP 98.2; O2SAT 97
--- NOTE | 2024-09-04 13:45 | Infectious Disease Consult ---
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 TTE (09/02) showed no obvious valvular vegetations (but the study was technically difficulty). MRI revealed a small area of intramedullary osteomyel itis involving the distal remaining tibia at the resection site, status post below-knee amputation, and an irregular small collection within the adjacent soft tissues anterior medial to the bone, consistent w/ an abscess. Repeat blood cultures were repeated today (09/04/24). The patient is currently on daptomycin and zosyn. Stop zosyn. I agree w/ daptomycin 8 mg/kg (adjuted body weight: current dose of 700 mg is reasonable) iv for now given NOE: may plan to transtion to vancomycin iv once the Cr improves back to baseline(?). Consult ortho for the OM and abscess to see if the patient will benefit from I&D. I recommend MAGY if the repeat blood cultures again show growth of MRSA as the TTE was of a poor quality per report. The patient will need a minimum of 6 weeks of iv abx therapy. Will continue to follow. I saw and evaluated the patient today. I have reviewed the trainee note and agree. Telehealth Information I performed this visit using a real-time telehealth connection between my location and the patients location ([facility]). After connecting through interactive tele-video, patient was identified by name and date of and/or wristband check.Patient (or authorized healthcare collections representative) was informed that this was a telemedicine visit and it was being conducted confidentially over secure lines. My office door was closed and no one else was present in the room with me.Patient (or authorized healthcare collections representative) provided consent to proceed with the visit, expressed an understanding of privacy and security of the telemedicine visit, and gave permission to have a hospital collections representative in the room in order to assist with the visit and to conduct portions of the visit, as needed. I informed the patient (or authorized healthcare collections representative) that I reviewed their record and presented the opportunity for them to ask any questions regarding the visit today. The patient agreed to participate. Assessment & Plan (1) MRSA bacteremia: (2) Norovirus: (3) Osteomyelitis: Plan Patient with MRSA bacteremia likely secondary to his stump infection /osteomyelitis. It does seem there is an abscess abutting this area and would recommend debridement if possible from Orthopedic Surgery. Repeat cultures has been drawn today, can discontinue Zosyn and continue with daptomycin. As long inpatient improves expectedly we can hold off MAGY for the time being - daptomycin IV 700 mg Q 24 hours - CK weekly - repeat blood cultures today have been drawn, pending -orthopedic evaluation of osteomyelitis/abutting abscess if feasible - discontinue Zosyn Appreciate consultation, please do not hesitate to reach out for any further questions or concerns. Rashid Barnard MD PGY5 Infectious Disease History of Present Illness History of Present Illness 59M w PMHx CAD, A-fib status post ablation on Eliquis, DM2, Chronic right ankle OM s/p BKA Jun 2024. Patients presented to fever, chills, diarrhea and Right BKA stump aching. WBC 19.9, Afeb. MRI of site with OM at site of resection + small abutting abscess as well as approx. 6cm tissue mass that is indeterminate abutting superficial fem artery. Patient received daptomycin/zosyn. / blood cultures positive for MRSA. TTE without obvious vegetations. Largely incidental norovirus positive as well. Allergies Allergy/AdvReac Type Severity Reaction Status Date / Time No Known Allergies Allergy Verified 09/02/24 06:20 Home Medications Medication Instructions Recorded Confirmed Type Saccharomyces boulardii 250 mg 250 mg PO BID 09/02/24 09/02/24 History capsule (Probiotic (S.boulardii)) apixaban 5 mg tablet 5 mg PO BID 09/02/24 09/02/24 History atorvastatin 40 mg tablet (Lipitor) 40 mg PO DAILY 09/02/24 09/02/24 History clopidogrel 75 mg tablet (Plavix) 75 mg PO DAILY 09/02/24 09/02/24 History dapagliflozin propanediol 10 mg 10 mg PO DAILY 09/02/24 09/02/24 History tablet (Farxiga) dulaglutide 3 mg/0.5 mL 3 mg subcut Q7D 09/02/24 09/02/24 History subcutaneous pen injector ([facility]) escitalopram oxalate 20 mg tablet 20 mg PO DAILY 09/02/24 09/02/24 History gabapentin 300 mg capsule 300 mg PO TID 09/02/24 09/02/24 History ipratropium 0.5 mg-albuterol 3 mg 3 ml inhalation Q4H PRN Wheezing 09/02/24 09/02/24 History (2.5 mg base)/3 mL nebulization soln metoprolol succinate 50 mg 50 mg PO DAILY 09/02/24 09/02/24 History tablet,extended release 24 hr (Toprol XL) pantoprazole 40 mg tablet,delayed 40 mg PO DAILY 09/02/24 09/02/24 History release potassium chloride 20 mEq 20 meq PO DAILY 09/02/24 09/02/24 History tablet,extended release sacubitril 97 mg-valsartan 103 mg 1 tab PO BID 09/02/24 09/02/24 History tablet (Entresto) tramadol 50 mg tablet 50 mg PO Q6H PRN Pain (Scale Score 09/02/24 09/02/24 History 4-6) Patient History Medical History Hypertension Social History Smoking Status: Never smoker Hx Alcohol Use: No Hx Substance Use: No Preferred Language: [place] Communication Ability: Effective Eligibility Worker Required: No Beliefs That Will Affect Care: None Current Living Situation: Rehab Feels Safe at Home: Yes Assistive Devices: Cane and Walker Review of Systems CONSTITUTIONAL: Denies weight loss, fever and chills. HEENT: Denies changes in vision and hearing. RESPIRATORY: Denies SOB and cough. CV: Denies palpitations and CP. GI: Denies abdominal pain, nausea, vomiting and diarrhea. : Denies dysuria and urinary frequency. MSK: Denies myalgia and joint pain. SKIN: Denies rash and pruritus. NEUROLOGICAL: Denies headache and syncope PSYCHIATRIC: Denies recent changes in mood. Denies anxiety and depression. Physical Exam GENERAL: Appears as stated age. No acute distress. NEUROLOGIC: No focal neurological deficits. Cranial nerves grossly intact. alert and oriented x3. Results & Data Vital Signs (Past 12 Hours) Vital Signs Temp Pulse Pulse Resp BP Pulse Ox O2 Del Method 09/04/24 11:18 36.8 C 98 H 18 100/63 97 Room Air 09/04/24 08:00 111 H 09/04/24 07:17 37.2 C 99 H 18 111/69 98 Room Air 09/04/24 05:40 103 H 136/80 09/04/24 03:47 36.6 C 94 H 18 107/67 98 Room Air Laboratory Results 09/02/24 04:05 Aerobic Blood Culture - Final Blood Staph aureus MRSA Anaerobic Blood Culture - Final Staph aureus MRSA 09/02/24 04:00 Aerobic Blood Culture - Final Blood Staph aureus MRSA Anaerobic Blood Culture - Final Staph aureus MRSA 09/02/24 Unknown Urine Culture - Final Urine,Clean Catch More than three types of organisms present, all low counts mixed probable skin roel. No further identifications or sensitivities to follow. 09/04/24 07:30 Aerobic Blood Culture - Pending Blood Anaerobic Blood Culture - Pending 09/04/24 06:06 Aerobic Blood Culture - Pending Blood Anaerobic Blood Culture - Pending 09/04/24 09/04/24 09/04/24 11:17 07:16 06:06 WBC 17.86 H RBC 3.80 L Hgb 10.5 L Hct 32.5 L MCV 85.5 MCH 27.6 MCHC 32.3 RDW Std Deviation 48.5 H RDW Coeff of Ellen 15.4 H Plt Count 324 MPV 9.5 Immature Gran % (Auto) 1.5 Neut % (Auto) 79.6 Lymph % (Auto) 7.1 [place] % (Auto) 9.8 Eos % (Auto) 1.7 Baso % (Auto) 0.3 Neut # (Auto) 14.23 H Lymph # (Auto) 1.26 [place] # (Auto) 1.75 H Eos # (Auto) 0.30 Baso # (Auto) 0.06 Immature Gran # (Auto) 0.26 H Sodium 131 L Potassium 4.4 Chloride 105 Carbon Dioxide 17 L Anion Gap 9 BUN 41 H Creatinine 1.96 H Est Cr Clr Drug Dosing 48.9 eGFR 38.66 BUN/Creatinine Ratio 20.9 H Glucose 140 H POC Glucose 155 H 133 H Calcium 8.1 L Phosphorus 3.8 Magnesium 1.7 Total Bilirubin 0.7 AST 27 ALT 10 Alkaline Phosphatase 93 Total Protein 6.3 Albumin 2.8 L Globulin 3.5 Albumin/Globulin Ratio 0.8 L 09/03/24 09/03/24 20:25 16:17 WBC RBC Hgb Hct MCV MCH MCHC RDW Std Deviation RDW Coeff of Ellen Plt Count MPV Immature Gran % (Auto) Neut % (Auto) Lymph % (Auto) [place] % (Auto) Eos % (Auto) Baso % (Auto) Neut # (Auto) Lymph # (Auto) [place] # (Auto) Eos # (Auto) Baso # (Auto) Immature Gran # (Auto) Sodium Potassium Chloride Carbon Dioxide Anion Gap BUN Creatinine Est Cr Clr Drug Dosing eGFR BUN/Creatinine Ratio Glucose POC Glucose 108 H 121 H Calcium Phosphorus Magnesium Total Bilirubin AST ALT Alkaline Phosphatase Total Protein Albumin Globulin Albumin/Globulin Ratio Diagnostic Findings Chest X-Ray 09/02/24 04:21 EXAM: XR chest 1V portable CLINICAL HISTORY: Sepsis. TECHNIQUE: An X-ray image of the chest is obtained in AP projection. COMPARISON: No prior studies are available for comparison. FINDINGS: Pulmonary Parenchyma: Prominent hilar bronchopulmonary vasculature (more on the right side with mild basal reticulations). Lungs are clear bilaterally. No evidence of consolidation, collapse, or focal opacities. No pulmonary nodules are identified. No evidence of pleural effusion or pleural thickening. Heart and Mediastinum: Heart size and shape are normal. No mediastinal widening or masses. No hilar or mediastinal lymphadenopathy. Bony Thorax: Bony thorax appears intact without fractures or deformities. Soft Tissues: Soft tissues overlying the chest wall are unremarkable. IMPRESSION: 1. Prominent hilar bronchopulmonary vasculature (more on the right side with mild basal reticulations). 2. No acute cardiopulmonary abnormalities are identified. Electronically signed by Oj Lara 09-02-2024 05:[address] 09/02/24 05:05 EXAM: CT knee RT wo con CLINICAL HISTORY: BKA, ?infection at the stump. TECHNIQUE: Thin axial images non-contrast of the right knee joint were obtained along with coronal and sagittal reconstructions. One of the following dose reduction techniques was utilized for this exam: Automated exposure control, adjustment of the mA and/or kV according to patient size, and use of iterative reconstruction. CTDI: 25mGY, DLP: 856mGy*cm. COMPARISON: None. FINDINGS: Bones: Below-knee amputation is seen at the level of the mid-shaft of the tibia. Normal alignment of the femur, tibia, fibula, and patella. No fractures or dislocations. Site of previous screws noted at tibial shaft. Joint Space: Osteoarthritic changes of the right knee joint Fabella is noted within the posterior aspect of the knee joint. Ligaments: Intact and normal appearance of the anterior cruciate ligament (ACL), posterior cruciate ligament (PCL), medial collateral ligament (MCL), and calcification of femoral attachment of lateral collateral ligament (LCL). No ligamentous injury or abnormalities. Tendons: Normal appearance of the patellar tendon, quadriceps tendon, and other tendons around the knee. Soft Tissues: Diffuse fatty infiltration of the visualized thigh and leg muscles. There is a dense soft tissue mass surrounding the popliteal artery at the popliteal fossa, measured 5x5.5 cm, which could represent a hematoma, which needs further evaluation. Extensive calcifications of the popliteal artery and its visualized branches at the upper leg. stump skin thickening and soft tissue edema at anteromedial aspect, need clinical correlation and further evaluations IMPRESSION: 1. Below knee amputation seen at level of mid shaft of tibia, with overlying skin thickening and soft tissue edema at anteriomedial aspect, could be inflammatory/infectious, need clinical correlation and further evaluations. MR is recommended. 2. Extensive calcifications of the distal SFA, popliteal artery, and its visualized branches at the upper leg. 3. There is a dense soft tissue mass surrounding the distal superficial femoral artery proximal to the popliteal fossa, measured 5 x 5.5 cm, could represent a hematoma, which needs further evaluation. 4. Diffuse fatty infiltration of the visualized thigh and leg muscles. 5. Osteoarthritic changes of the right knee joint. 6. calcification of femoral attachment of lateral collateral ligament (LCL). Electronically signed by Oj Lara 09-02-2024 07:07 AM Lower Extremity MRI 09/03/24 09:19 MRI right lower extremity with and without IV contrast History: Below-knee amputation with possible infection Comparison: CT from September 02, 2024 Technique: Multiphasic, multisequence MRI of the right lower extremity performed with and without IV contrast. Findings: Redemonstrated is a below-knee amputation at the level of the mid tibial shaft with overlying skin thickening and soft tissue edema, especially about the anteromedial aspect. An irregular, lobulated and rim-enhancing collection is seen about the anteromedial aspect of the tibia, in the coronal plane this measures approximately 3.3 x 2.0 cm, and 3.0 cm in the AP dimension, and is seen to surround the distal aspect of the resected bone. There is extensive surrounding edema and inflammatory fat stranding. Within the distalmost aspect of the tibial intramedullary space is an area of significant low T1-weighted signal in the coronal plane measuring 1.5 x 1.8 cm. Evidence of prior distal tibial screw track burch. Generalized edema is seen throughout the remaining lower leg about the calf musculature without additional fluid collection. Suboptimal evaluation of the knee joint due to the chosen protocol and field of view. There is some degenerative extrusion of the medial and lateral menisci. The anterior and posterior cruciate ligaments are intact. Physiologic knee joint fluid seen. Within the musculature posterior to the distal aspect of the femur, there is a rounded structure, measuring 6.2 x 4.6 x 5.7 cm. This has a heterogeneous and laminated appearance, with the central portion demonstrating mildly high T1 and high T2 weighted signal, with the bulk of the structure and outer portion demonstrating low T2 and heterogeneous intermediate T1 weighted signal. There appears to be non-mass like surrounding reactive enhancement and edema. The central portion appears to enhance. Impression: 1. There is a small area of intramedullary osteomyelitis involving the distal remaining tibia at the resection site, status post below-knee amputation. An irregular small collection within the adjacent soft tissues anterior medial to the bone is consistent with an abscess. 2. A 6.2 cm rounded structure is seen posterior to the distal aspect of the femur in the right lower extremity, and is indeterminate. The central portion appears to enhance, and a avascular structure, such as a pseudoaneurysm would need to be excluded. Otherwise this may represent an evolving hematoma. Further evaluation with CT angiogram would be helpful. Electronically signed by Mikal Good 09-03-2024 2:18 PM Orbit X-Ray 09/03/24 10:46 ORBIT RADIOGRAPHS 3 VIEWS HISTORY: pre-MRI screening. COMPARISON: None. FINDINGS: There are no radiopaque foreign bodies identified within the orbits. IMPRESSION: No radiopaque foreign bodies identified within the orbits. ACT 112: Negative or not required by law. Electronically signed by: Ric Corona M.D. 09/03/2024 12:53 PM
--- NOTE | 2024-09-04 14:06 | Hospitalist Progress Note ---
Date of Service September 04, 2024 Assessment & Plan (1) Severe sepsis: Plan Pt is a 59yoM with PMHx significant for chronic diastolic heart failure (EF 50%, TTE 2023, CAD, A-fib status post ablation on Eliquis, hypertension, hyperlipidemia, PUD as per records, pancreatic lesion as per records, DM2 on oral medications, chronic anemia (baseline hemoglobin 12-13), chronic right ankle osteomyelitis status post BKA status post antibiotic Rx, morbid obesity, mood disorder, past tobacco abuse who presented with concern for infection. Sepsis Norovirus Infection R stump Osteomyelitis with Abscess Gram positive Bacteremia SIRS plus acute renal failure plus lactic acidosis Potential sources: Gram-positive bacteremia on outpatient blood work (MRSA gene positive) rule out endocarditis Recurrent RLE osteomyelitis, hx BKA for chronic right ankle osteomyelitis sp antibiotic Rx (06/2024, [facility]) Norovirus infection- supportive care for treatment CT RLE concerning for infection MRI noting osteomyelitis with abscess and possible hematoma vs. pseudoaneurysm TTE re: Gram-positive bacteremia without noted visible vegetations Blood Cx 2 sets from 09/02/24 grew MRSA resistant to clindamycin, erythromycin and oxacillin. Sensitive to Daptomycin. Repeat blood cultures drawn on 09/04/24 currently pending. IV fluids Follow final outpatient blood CS report drawn by [facility] at [facility] Treated with IV Daptomycin and Zosyn and antibiotics further tailored to only Daptomycin per recommendations of Infectious Disease Orthopedics consulted, appreciate recs. Dr Gentile noted the following: "...Discussed with the patient that his laboratory results suggest he has an infection going on, however it is not clear what the source is. It is possible that he has a cellulitis around his incision site from below-knee amputation. Do not believe the hematoma seen on the CT scan is infected given his clinical exam...He is not hemodynamically unstable. No emergent surgery indicated. He does need to have follow-up for his below-knee amputation. This will need to be with the performing surgeon at [facility]. Recommend transfer of the patient to [facility] tomorrow for additional evaluation by his treating surgeon. IV antibiotics per the medicine team. No weightbearing through the right below-knee amputation stump..." Infectious Disease was also consulted and noted the following on 09/04/24: "...Patient with MRSA bacteremia likely secondary to his stump infection /osteomyelitis. It does seem there is an abscess abutting this area and would recommend debridement if possible from Orthopedic Surgery. Repeat cultures has been drawn today, can discontinue Zosyn and continue with daptomycin. As long inpatient improves expectedly we can hold off MAGY for the time being - daptomycin IV 700 mg Q 24 hours - CK weekly - repeat blood cultures today have been drawn, pending -orthopedic evaluation of osteomyelitis/abutting abscess if feasible - discontinue Zosyn..." Pt transferred to [facility] for further evaluation and management by his treating orthopedic surgeon per the recommendations of Orthopedics at [facility]. Possible hematoma in stump Holding Eliquis and plavix at this time Ortho recs as per above. Acute on ?Chronic Metabolic Encephalopathy Pt noting that he is hallucinating Discussion with nursing staff at [facility], pt often says/displays "odd behavior" If persistent or worsening consider head imaging and further workup, however likely in setting of acute infection Delirium precautions. Frequent reorientation, avoid sedating medications as able Continue to monitor Acute Kidney Disease Pt with Cr of 2.23 on admission Uncertain baseline IV fluids Hold nephrotoxic meds Continue to monitor Chronic Medical Problems: chronic diastolic heart failure hx CAD A-fib status post ablation on Eliquis hyperlipidemia, on statin Rx hx PUD as per records pancreatic lesion as per records, incidental finding on abdominal imaging last June 2024 as per records DM2 on oral medications, hemoglobin A1c of 5.7 from last year. Chronic anemia, hemoglobin at baseline past tobacco abuse Admission and Anticipated Discharge Date Admission Date: September 02, 2024 Subjective pt was seen in the AM Denied acute concerns Asking if there was a bagel in the ceiling but otherwise AAOx3 Review of Systems Review of Systems: All systems reviewed & are unremarkable except as noted in Subjective Physical Exam Physical Exam: General: Alert, orientedx3. No acute distress Skin: R BKA stump with fluctuance, slight erythema HEENT: NC/AT CV: RRR Resp: Breath sounds clear bilaterally, no increased effort of breathing Abdomen: Soft, nontender Extremities: R BKA stump with fluctuance, erythema Results & Data Results & Data Vital Signs (Past 12 Hours) Vital Signs Temp Pulse Pulse Resp BP Pulse Ox O2 Del Method 09/04/24 11:18 36.8 C 98 H 18 100/63 97 Room Air 09/04/24 08:00 111 H 09/04/24 07:17 37.2 C 99 H 18 111/69 98 Room Air 09/04/24 05:40 103 H 136/80 09/04/24 03:47 36.6 C 94 H 18 107/67 98 Room Air
[2024-09-04 15:22] VITALS: BP 117/71
[2024-09-04] MEDS ORDERED: METOPROLOL TARTRATE 25 MG TAB PO SCH (21:00)
== END 2024-09-04 15:59 | disposition short-term general hospital (02) | DRG 862 ==
LOC: ED 03:45 → 2S 05:54